=== PATIENT | female | born 1950 | race Caucasian/White ===

== ENCOUNTER 2023-07-05 15:10 | Outpatient (AMB) | payer MEDICARE, SELFPAY ==
[2023-07-05 15:18] VITALS: BP 158/90; PULSE 65; O2SAT 97; BMI 19.1
--- NOTE | 2023-07-05 15:18 | MHC.PC.OV ---
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 [employer] Required: No Allergies amoxicillin [From Augmentin] Allergy (Intermediate, Verified 07/05/23 16:07) Hives clavulanic acid [From Augmentin] Allergy (Intermediate, Verified 07/05/23 16:07) Hives doxycycline Allergy (Intermediate, Verified 07/05/23 16:07) Hives tramadol Allergy (Intermediate, Verified 07/05/23 16:07) Hives Glycerol oma of wood rosin Adverse Reaction (Mild, Uncoded 07/05/23 16:07) Itching hexyl cinnamal Adverse Reaction (Mild, Uncoded 07/05/23 16:07) Itching Medication List - Last Reconciled 07/05/23 by SHAVONNE Sow blood pressure monitor As directed hydrochlorothiazide 25 mg PO QAM losartan 100 mg PO DAILY valacyclovir 1,000 mg PO BID PRN Tobacco use date assessed: 07/05/23 Fall risk assessment: No Falls in past year Last assessed Fall Risk: 07/05/23 Dental Screening Dental Screen Date: 07/05/23 Did you have a dental visit in the last 12 months?: Yes Did you have a dental problem in the last 6 months where you did not have access to dental care?: No Was dental information given to patient?: Patient has dentist 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 Previous PCP on [facility], recently moved to this area. Medical history significant for hypertension, low back pain - history of laminectomy, history of shingles-reports when she feels stress shingles break out and then she takes valacyclovir as needed which was given to her by Dermatology in the past. Patient denies shortness of breath or chest pain. She does not check her blood pressures at home, reports compliance with blood pressure medications. [facility] Medical History (Updated 07/05/23 @ 17:01 by SHAVONNE Sow) Chronic low back pain Surgical History (Updated 07/05/23 @ 17:01 by SHAVONNE Sow) H/O laminectomy H/O lumpectomy History of surgery on lower extremity Family History Mother Breast cancer Father CHF (congestive heart failure) Social History Housing: Apartment Patient Tobacco Use Status: Never used Tobacco service: No Current occupational status: retired Cognitive needs: No Hearing needs: No Vision needs: Yes Questionnaire PHQ-9 Over the last 2 weeks, how often have you been bothered by any of the following problems? 1. Little interest or pleasure in doing things: not at all 2. Feeling down, depressed, or hopeless: not at all 3. Trouble falling or staying asleep, or sleeping too much: not at all 4. Feeling tired or having little energy: not at all 5. Poor appetite or overeating: not at all 6. Feeling bad about yourself - or that you are a failure or have let yourself or your family down: not at all 7. Trouble concentrating on things, such as reading the newspaper or watching television: not at all 8. Moving or speaking so slowly that other people could have noticed. Or the opposite - being so fidgety or restless that you have been moving around a lot more than usual: not at all 9. Thoughts that you would be better off or of hurting yourself in some way: not at all Total score: 0 Depression Screening Interpretation: Negative Depression Screening Done: Yes 59966 - PHQ-9 Billing: Yes Source: Developed by Drs. Ildefonso Vazquez, Diya Berg, Emeka Galvan and colleagues, with an educational ida from [employer]. Thrive Questionnaire Date Thrive assessed: 07/05/23 I am a: Patient What is your living situation today?: I have a steady place to live Within the past 12 months, did the food you bought not last and you didn't have the money to get more?: Never true Within the past 12 months, did you worry whether your food would run out before you got money to buy more?: Never true Do you have trouble paying for medicines?: No Do you have trouble getting transportation to medical appointments?: No Do you have trouble paying your heating and electricity bill?: No Do you have trouble taking care of your child, family member or friend?: No Do you have trouble with day-to-day activities such as bathing, preparing meals, shopping, managing finances, etc.?: No Are you currently unemployed and looking for a job?: No Are you interested in more education?: No Currently or been in a relationship where the following occur: no concerns reported AUDIT C Alcohol Use Questionnaire (AUDIT-C) 1. How often do you have a drink containing alcohol?: 2-3 times a week 2. How many drinks containing alcohol do you have on a typical day when you are drinking?: 1 or 2 3. How often do you have six or more drinks on one occasion?: Weekly Total Score: 6 Score Reviewed/Action Taken: Yes DUDLEY-7 AMB Questionnaire DUDLEY-7 Date DUDLEY - 7 assessed: 07/05/23 Feeling nervous, anxious, or on edge: 0 = Not at all Not being able to stop or control worryin = Not at all Worrying too much about different things: 0 = Not at all Trouble relaxin = Not at all Being so restless that it is hard to sit still: 0 = Not at all Becoming easily annoyed or irritable: 0 = Not at all Feeling afraid as if something awful might happen: 0 = Not at all Total DUDLEY-7 score (0-4 normal; 5-9 mild; 10-14 moderate; 15-21 severe): 0 Source: Developed by Drs. Ildefonso Vazquez, Diya Berg, Emeka Galvan and colleagues, with an educational ida from [employer]. DUDLEY-7 Assessment Billing DUDLEY-7 Assessment Tool: DUDLEY-7 Assessment 16614 Review of Systems Const Denies body aches, Denies chills, Denies fever(s) and Denies headache(s) Eyes Denies change in vision ENT Denies dizziness, Denies otalgia, Denies headache(s), Denies nasal discharge, Denies sinus pain and Denies sore throat Card Denies chest pain, Denies edema, Denies lightheadedness and Denies dyspnea Resp Denies cough, Denies dyspnea and Denies wheezing GI Denies abdominal pain, Denies constipation, Denies diarrhea, Denies nausea and Denies vomiting Denies dysuria Musc Reports back pain and Denies myalgias Skin/Breast Denies rash Neuro Denies dizziness and Denies headache(s) Aller/Immun Denies wheezing Physical exam (Primary Care) Vital Signs: Last Vital Signs Pulse 65 07/05/23 15:18 BP 172/84 H 07/05/23 16:22 Pulse Ox 97 07/05/23 15:18 Oxygen Delivery Method Room Air 07/05/23 15:18 BMI result Body Mass Index 19.1 Tobacco/Smoking Status: Tobacco use Status Tobacco use date assessed 07/05/23 07/05/23 15:20 Patient Tobacco Use Status Never used Tobacco 07/05/23 15:20 PHQ-9: PHQ-9 Score PHQ-9: Total score 0 07/05/23 16:06 Depression Screening Interpretation: Negative Thrive Assessment: Date of Thrive Assessment Date Thrive assessed 07/05/23 07/05/23 15:20 Currently or been in a relationship where the following occur: no concerns reported Const General: cooperative and no acute distress Orientation/consciousness: patient oriented x3 HENMT Head: Yes normocephalic and Yes atraumatic Ears: TM's normal bilaterally Face and sinus: Yes sinuses nontender Mouth: oropharynx normal and moist mucous membranes Throat: Yes posterior oropharynx normal Eyes General: appearance normal, both eyes and all related structures Pupils: Equal, round and reactive pupils present EOM: EOMs intact bilaterally Neck Neck: Yes normal visual inspection, Yes full ROM and Yes no lymphadenopathy Thyroid: Thyroid normal Resp Effort & Inspection: normal respiratory effort and able to speak in complete sentences Auscultation: clear to auscultation bilaterally, no crackles, no rales, no rhonchi and no wheezes Cardio Rate: regular rate Rhythm: regular rhythm Heart sounds: S1 normal heart sound present, S2 normal heart sound present and no murmurs GI Palpation (GI): Soft to palpation, not firm, nontender, no guarding, not rigid and no hepatosplenomegaly Auscultation: normal bowel sounds General: No CVA tenderness Back/Spine/Pelvis Back: No CVA tenderness Skin General skin exam: no rashes or lesions noted Neuro General: patient oriented x3 Cranial nerves: Yes Equal, round and reactive pupils present Gait exam (Neuro): Normal gait present Extrem General: Yes full ROM and No edema Assessment and Plan Assessment & Plan (1) Encounter to establish care: Code(s): Z76.89 - Persons encountering health services in other specified circumstances (2) Hypertension: Code(s): I10 - Essential (primary) hypertension Plan: Goal BP equal or less than 140/90 Blood pressure elevated in the office today, patient denies acute symptoms Continue losartan 100 mg daily Increase hydrochlorothiazide to 25 mg daily Reinforced low-sodium diet Signs and symptoms reviewed when to notify provider or go to the emergency department Follow-up with nurse in 2 weeks for BP recheck Monitor blood pressures at home (3) History of shingles: Code(s): Z86.19 - Personal history of other infectious and parasitic diseases Plan: Valacyclovir 1000 mg b.i.d. p.r.n. for shingles breakout (4) Chronic low back pain: Code(s): M54.50 - Low back pain, unspecified; G89.29 - Other chronic pain Plan: Patient reports she does not take anything for pain Declines referral to pain management Plan Follow-up in 2 months for PE and labs Orders: Orders Vitamin B12 and Folate Today I10 - Essential (primary) hypertension Lipid Panel Today I10 - Essential (primary) hypertension Complete Blood Count Auto Diff Today I10 - Essential (primary) hypertension Vitamin D 25-OH Total Today I10 - Essential (primary) hypertension TSH reflex Free T4 Today I10 - Essential (primary) hypertension Comprehensive [place]. Panel Fast Today I10 - Essential (primary) hypertension Medications: New hydrochlorothiazide 25 mg PO QAM 90 tabs 0RF I10 - Essential (primary) hypertension blood pressure monitor As directed 1 ea 0RF I10 - Essential (primary) hypertension Coding Level of Care Code New Pt Level 4 (23753) Diagnoses Encounter to establish care Z76.89 Hypertension I10 History of shingles Z86.19 Chronic low back pain M54.50; G89.29 Additional Codes DUDLEY-7 Assessment Billing - DUDLEY-7 Assessment Tool: DUDLEY-7 Assessment 53706 ([id number])
[2023-07-05 16:22] VITALS: BP 172/84
== END 2023-07-05 16:33 | disposition home or self-care (01) ==
PROVIDERS: PCP Nurse Practitioner Family; Visit Provider Nurse Practitioner Family
DX: Z76.89 Persons encountering health services in other specified circumstances (principal); I10 Essential (primary) hypertension; Z86.19 Personal history of other infectious and parasitic diseases; M54.50 Low back pain, unspecified; G89.29 Other chronic pain
CPT/HCPCS: 99204

== ENCOUNTER 2023-07-11 09:21 | Outpatient (REF) | payer MEDICARE, SELFPAY ==
[2023-07-11 09:48] LABS: MANUAL DIFF FLAG NO
[2023-07-11 10:17] LABS: Basophils Percent Auto 0.5 % (0-2); Eosinophils Absolute Auto 0.1 X10*3/uL (0.0-0.4); Eosinophils Percent Auto 2.9 % (0-4); Hematocrit 39.6 % (37.0-47.0); Hemoglobin 13.6 g/dl (12.0-16.0); Imm Gran Abs Auto 0.02 X10*3/uL (0.00-0.03); Imm Gran Pct Auto 0.5 % (0.0-0.4); Lymphocytes Absolute Auto 1.1 X10*3/uL (1.2-4.9); Lymphocytes Percent Auto 27.9 % (20-40); Mean Corpuscular HGB Conc 34.3 g/dl (31.0-35.0); Mean Corpuscular Hemoglobin 30.9 pg (27.0-33.0); Mean Platelet Volume 8.9 fL (9.4-12.3); Monocytes Absolute Auto 0.5 X10*3/uL (0.1-1.2); Monocytes Percent Auto 12.8 % (2-11); Neutrophils Absolute Auto 2.1 x10*3/uL (2.0-8.3); Neutrophils Percent Auto 55.4 % (45-73); Platelet Count 226 X10*3/uL (160-400); Red Cell Distribution Width 12.7 % (11.0-16.0); White Blood Count 3.8 X10*3/uL (4.8-10.8)
[2023-07-11 10:53] LABS: Alanine Aminotransferase 14 U/L (0-31); Albumin Level 4.5 g/dL (3.5-5.0); Alkaline Phosphatase 71 U/L (39-117); Anion Gap 13 (12-20); Aspartate Amino Transferase 22 U/L (5-31); Blood Urea Nitrogen 6 mg/dL (9-16); Calcium 9.8 mg/dL (8.4-10.2); Carbon Dioxide 27 mmol/L (22-29); Chloride 90 mmol/L (96-108); Cholesterol 241 mg/dL (<200); Estimated Glomerular Filt Rate > 60; Glucose Fasting 103 mg/dL (60-99); HDL Cholesterol 106 mg/dL (>40); LDL Cholesterol Calculated 119 mg/dL (<100); Sodium 126 mmol/L (135-145); Total Protein 7.5 g/dL (6.5-8.0); Triglycerides 82 mg/dL (<150)
[2023-07-11 11:12] LABS: TSH reflex Free T4 0.91 uIU/mL (0.32-4.0); Vitamin D 25-OH Total 17.8 ng/mL (>30)
[2023-07-11 11:17] LABS: Folate 5.5 ng/mL (> or = 4.0); Vitamin B12 270 pg/mL (200-900)
== END 2023-07-11 09:22 | disposition home or self-care (01) ==
LOC: HO.LAB 09:21
PROVIDERS: PCP Nurse Practitioner Family; Visit Provider Nurse Practitioner Family
DX: I10 Essential (primary) hypertension (principal); E87.1 Hypo-osmolality and hyponatremia; R73.01 Impaired fasting glucose; E55.9 Vitamin D deficiency, unspecified
CPT/HCPCS: 36415; 80053; 80061; 82306; 82607; 82746; 84443; 85025

== ENCOUNTER 2023-07-27 11:37 | Outpatient (REF) | payer MEDICARE, SELFPAY ==
[2023-07-27 12:34] LABS: Anion Gap 12 (12-20); Blood Urea Nitrogen 9 mg/dL (9-16); Calcium 9.3 mg/dL (8.4-10.2); Carbon Dioxide 26 mmol/L (22-29); Chloride 91 mmol/L (96-108); Estimated Glomerular Filt Rate > 60; Glucose Random 98 mg/dL (60-115); Potassium 3.9 mmol/L (3.3-5.1); Sodium 125 mmol/L (135-145)
[2023-07-27 12:35] LABS: Estimated Average Glucose 91 mg/dL; Hemoglobin A1c % 4.8 % (<6.0)
== END 2023-07-27 11:38 | disposition home or self-care (01) ==
LOC: HO.LAB 11:37
PROVIDERS: PCP Nurse Practitioner Family; Visit Provider Nurse Practitioner Family
DX: E87.1 Hypo-osmolality and hyponatremia (principal); R73.01 Impaired fasting glucose
CPT/HCPCS: 36415; 80048; 83036

== ENCOUNTER 2023-09-11 11:51 | Outpatient (REF) | payer MEDICARE, SELFPAY ==
--- NOTE | ~2023-09-11 | MM_ITS ---
EXAMINATION: MM SCREENING DIGITAL BREAST TOMOSYNTHESIS, BILATERAL CLINICAL INFORMATION: Screening. Asymptomatic. The patient reports a history of prior right breast surgery. She does not report a history of breast cancer. COMPARISON: Mammography: There are no prior mammograms for comparison. TECHNIQUE: Digital breast tomosynthesis is performed in both the craniocaudal and mediolateral oblique views along with computer-aided detection (CAD). Synthesized 2D images are generated from the tomosynthesis. FINDINGS: There are scattered areas of fibroglandular density (ACR BI-RADS breast composition Category b). There are no significant masses, abnormal calcifications, or other abnormalities. There are surgical clips in the superior aspect of the left breast. MM/MM tomosynthesis screening BI IMPRESSION: No mammographic evidence of malignancy. ASSESSMENT: BI-RADS BI-RADS 2 - Benign Findings RECOMMENDATION: Routine annual mammography screening. 1 year F/U This examination should not preclude the clinical evaluation of a suspicious palpable abnormality. This patient's information was entered into a reminder system with a target due date for their next mammogram.
== END 2023-09-11 11:52 | disposition home or self-care (01) ==
LOC: HO.MAMMO 11:51
PROVIDERS: PCP Nurse Practitioner Family; Visit Provider Nurse Practitioner Family
DX: Z12.31 Encounter for screening mammogram for malignant neoplasm of breast (principal)
CPT/HCPCS: 77063; 77067

== ENCOUNTER → 2023-09-11 12:30 | Outpatient (BNV) | payer MEDICARE, SELFPAY | PROVIDERS: PCP Nurse Practitioner Family; Visit Provider Radiology Diagnostic Radiology | DX: Z12.31 Encounter for screening mammogram for malignant neoplasm of breast (principal) | CPT/HCPCS: 77063; 77067 ==

== ENCOUNTER 2023-09-15 20:51 | Inpatient (IN) | payer MEDICARE, SELFPAY ==
--- NOTE | 2023-09-15 | ECG_ITS ---
Test Reason : FALL Blood Pressure : / mmHG Vent. Rate : 089 BPM Atrial Rate : 089 BPM P-R Int : 136 ms QRS Dur : 090 ms QT Int : 384 ms P-R-T Axes : 055 010 090 degrees QTc Int : 467 ms Normal sinus rhythm Nonspecific ST abnormality Borderline ECG No previous ECGs available Referred By: Generic ED Physician Electronically Signed By:CLINT CRAFT
--- NOTE | ~2023-09-15 | XR_ITS ---
EXAMINATION: XR HIP, LEFT CLINICAL INFORMATION: Fall COMPARISON: None available. TECHNIQUE: Frontal view the pelvis with coned frontal and attempted frog-leg lateral view of the left hip. FINDINGS: There is a trabecular irregularity suggesting a subtle impacted subcapital left femoral neck fracture with mild cortical step-off along the lateral aspect. Femoral head itself is well-seated within the acetabulum. No other acute bony abnormality within the pelvis. Lumbar spine hardware partially visualized. XR/XR hip LT w PEL1V IMPRESSION: Subtle impacted subcapital left femoral neck fracture with mild cortical step-off along the lateral aspect.
[2023-09-15 21:13] VITALS: BP 145/62; PULSE 95; O2SAT 99
[2023-09-15 21:16] VITALS: BMI 20.1
[2023-09-15 21:19] VITALS: BP 137/76; PULSE 88; RESP 17; TEMP 36.8; O2SAT 97
--- NOTE | 2023-09-15 22:18 | ED_ITS ---
HPI - General Adult General Chief complaint: Fall Stated complaint: fall Time Seen by Provider: 09/15/23 21:59 Source: patient, family, EMS and RN notes reviewed Mode of arrival: EMS Limitations: no limitations History of Present Illness HPI narrative: 73-year-old female with past medical history of hyponatremia, chronic low back pain, status post laminectomy, hypertension arived to ER via ambulance. Patient fell this afternoon in her living room. Patient reports that she was trying to find TV remote was walking on her freshly polished floor, her legs gave in and she fell. Patient denies tripping over carpet, patient denies slipping. Patient denies any presyncope, dizziness, syncope. Patient denies any LOC. Not on any blood thinners. Patient denies any cardiac or respiratory symptoms before and after the incident. History of laminectomy in 2019. Patient denies any pelvic or back pain at this time. Patient reports that she has no pain at this time unless she moves her left hip or left. Patient denies hitting head. Patient denies any nausea or vomiting. Denies any chest pain or chest pressure. Denies any shortness of breath with or without exertion. Patient denies any abdominal pain or discomfort. Patient reports that she had trouble with anesthesia in the past for laminectomy surgery. She has hard time waking up and felt groggy for long time after the surgery. Onset (ago): hour(s) Related Data Home Medications Medication Instructions Recorded Confirmed valacyclovir 1 gram tablet 1,000 mg PO BID PRN shingles 07/05/23 09/16/23 hydrochlorothiazide 25 mg tablet 12.5 mg PO DAILY 09/16/23 09/16/23 losartan 100 mg tablet 100 mg PO DAILY 09/16/23 09/16/23 Previous Rx's Medication Instructions Recorded blood pressure monitor #1 ea 07/05/23 Allergies Allergy/AdvReac Type Severity Reaction Status Date / Time amoxicillin [From Augmentin] Allergy Intermediate Hives Verified 07/05/23 16:07 clavulanic acid Allergy Intermediate Hives Verified 07/05/23 16:07 [From Augmentin] doxycycline Allergy Intermediate Hives Verified 07/05/23 16:07 tramadol Allergy Intermediate Hives Verified 07/05/23 16:07 Glycerol oma of wood rosin AdvReac Mild Itching Uncoded 07/05/23 16:07 hexyl cinnamal AdvReac Mild Itching Uncoded 07/05/23 16:07 PMFSH Past Medical History Medical History History of breast cancer Essential hypertension Chronic low back pain Surgical History H/O laminectomy H/O lumpectomy History of surgery on lower extremity Family History Family History Mother Breast cancer Father CHF (congestive heart failure) Social History Social History Household Members: Other Housing: Apartment Do you presently have visiting nurse or other home services: No Patient Tobacco Use Status: Never used Tobacco service: No Current occupational status: retired Cognitive needs: No Hearing needs: No Vision needs: Yes Physical Exam ED Vital Signs: Vital Signs - 24 hr 09/15/23 21:19 09/15/23 22:34 Temperature 98.2 F Pulse Rate 88 99 Respiratory Rate 17 15 Blood Pressure 137/76 Pulse Oximetry 97 99 Oxygen Delivery Method Room Air Room Air BMI result Body Mass Index 20.1 Const General: no acute distress and well developed Nutritional Appearance: well nourished Orientation/consciousness: patient oriented x3 HENMT Head: Yes normal to inspection, Yes normocephalic and Yes atraumatic Face and sinus: Yes normal facial exam Mouth: Normal oral and palatal mucosa present Throat: Yes posterior oropharynx normal, Yes tonsils normal and Yes uvula midline Eyes General: appearance normal, both eyes and all related structures Neck Neck: Yes normal visual inspection, Yes full ROM and Yes trachea midline Thyroid: Thyroid normal Resp Effort & Inspection: normal respiratory effort, able to speak in complete sentences, no tracheal deviation and symmetric chest movement Auscultation: clear to auscultation bilaterally Cardio Rate: regular rate GI Inspection: Yes normal to inspection and No distended Palpation (GI): Soft to palpation, not firm, nontender and No hepatosplenomegaly present Auscultation: normal bowel sounds General: Yes no CVA tenderness Back/Spine/Pelvis Back: no CVA tenderness Pelvis: Other pelvic findings (Left hip pain) Coccyx: Other pelvic findings (Left hip pain) Skin General skin exam: elasticity normal, turgor normal and dry skin Neuro General: patient oriented x3 Extrem Right upper extremity: normal to inspection, full ROM and normal capillary refill; no cyanosis and no edema Left upper extremity: normal to inspection, full ROM and normal capillary refill; no cyanosis and no edema Right lower extremity: normal to inspection, full ROM and normal capillary refill; no cyanosis and no edema Left lower extremity: normal to inspection and normal capillary refill; abnormal ROM, no cyanosis and no edema Psych Appearance: grossly normal Mental Status: mental status grossly normal Course Course Course Narrative: 73-year-old female with past medical history of hyponatremia, chronic low back pain, status post laminectomy, hypertension arise to ER via ambulance. Patient fell in her living room. Patient reports that she was trying to find TV remote was walking and she fell. Patient denies any presyncope, dizziness, syncope. Patient denies any LOC. Not on any blood thinners. Patient reports that she has no pain at this time unless she moves her left hip or left. Patient denies hitting head. Patient denies any nausea or vomiting. Denies any chest pain or chest pressure. Denies any shortness of breath with or without exertion. Patient denies any abdominal pain or discomfort. X-ray done and shows subcapital left femoral neck fracture. History of laminectomy in 2019. Patient denies any pelvic or back pain at this time. Patient reports that she has no pain at this time unless she moves her left hip or left. Patient denies hitting head. Patient denies any nausea or vomiting. Denies any chest pain or chest pressure. Denies any shortness of breath with or without exertion. Patient denies any abdominal pain or discomfort. Patient reports that she had trouble with anesthesia in the past for laminectomy surgery. She has hard time waking up and felt groggy for long time after the surgery. Reevaluation(s) Reevaluation #1: Call placed to ortho. request for admission to hospitalist services recommendation was to admit patient to hospitalist for medical management. Currently patient is not in any pain. With rather not receive narcotics. Bed request for admission with hospitalist services. Report to hospitalist send, waiting admission Medications Administered Generic Name Dose Route Start Last Admin Trade Name Freq PRN Reason Stop Dose Admin Losartan Potassium 100 mg 09/16/23 09:00 09/16/23 09:02 Losartan Potassium 50 Mg Tablet PO 100 mg DAILY MARTHA Administration Protocol Sodium Chloride 3 ml 09/16/23 00:00 09/16/23 14:33 0.9 % Sodium Chloride Flush 3 Ml Syringe IVFLUSH Not Given QSHIFT MARTHA Vitamin D 50 mcg 09/16/23 09:00 09/16/23 09:02 Cholecalciferol (Vitamin D3) 25 Mcg Tablet PO Not Given DAILY MARTHA Discontinued Medications Generic Name Dose Route Start Last Admin Trade Name Alphonso PRN Reason Stop Dose Admin Enoxaparin Sodium 40 mg 09/15/23 23:45 09/16/23 00:51 Enoxaparin Sodium 40 Mg/0.4 Ml Syringe SUBCUT 40 mg BEDTIME MARTHA Administration Dextrose/Sodium Chloride 1,000 mls @ 100 mls/hr 09/15/23 23:45 09/16/23 14:42 D5ns IVCONT Infused .Q10H MARTHA Infusion Clindamycin Phosphate 900 mg in 50 mls @ 50 mls/hr 09/16/23 09:16 09/16/23 12:05 Cleocin IV 09/16/23 10:15 Not Given PREOP ONE Medical Decision Making Medical Decision Making MDM Narrative: 73-year-old female with past medical history of hyponatremia, chronic low back pain, status post laminectomy, hypertension arise to ER via ambulance. Patient fell in her living room. Patient reports that she was trying to find TV remote was walking and she fell. Patient denies any presyncope, dizziness, syncope. Patient denies any LOC. Not on any blood thinners. Patient reports that she has no pain at this time unless she moves her left hip or left. Patient denies hitting head. Patient denies any nausea or vomiting. Denies any chest pain or chest pressure. Denies any shortness of breath with or without exertion. Patient denies any abdominal pain or discomfort. X-ray done and shows subcapital left femoral neck fracture. Call placed to ortho, up patient will be admitted to hospitalist services for medical management, history of hypertension on 2 antihypertensives. Message sent to the hospitalist for admission. Bed request done. Differential Diagnosis Differential Diagnoses: The differential diagnosis associated with the presentation includes Hip fracture, femur fracture Admission/Observation Consideration of admission/observation: Escalation of care including admission/observation considered Case presented to orthol and hospitalist services for admission Consult Healthcare Provider Management of the patient was discussed with: Hospitalist and [employer] Adjuster (Ortho) Lab Data MDM Lab Attestation statement: I reviewed the patient's lab results. 09/16/23 06:12 09/16/23 06:12 Labs: Lab Results 09/15/23 Range/Units 23:44 WBC 11.5 H (4.8-10.8) X10*3/uL RBC 4.19 L (4.20-5.50) X10*6/uL Hgb 13.5 (12.0-16.0) g/dl Hct 37.3 (37.0-47.0) % MCV 89.0 (80.0-98.0) fL MCH 32.2 (27.0-33.0) pg MCHC 36.2 H (31.0-35.0) g/dl RDW 12.0 (11.0-16.0) % Plt Count 204 (160-400) X10*3/uL MPV 8.8 L (9.4-12.3) fL Immature Gran % (Auto) 0.6 H (0.0-0.4) % Neut % (Auto) 83.8 H (45-73) % Lymph % (Auto) 9.5 L (20-40) % [place] % (Auto) 5.6 (2-11) % Eos % (Auto) 0.3 (0-4) % Baso % (Auto) 0.2 (0-2) % Lymph # (Auto) 1.1 L (1.2-4.9) X10*3/uL [place] # (Auto) 0.6 (0.1-1.2) X10*3/uL Eos # (Auto) 0.0 (0.0-0.4) X10*3/uL Baso # (Auto) 0.0 (0.0-0.2) X10*3/uL Abs Immat Gran (auto) 0.07 H (0.00-0.03) X10*3/uL Absolute Neuts (auto) 9.6 H (2.0-8.3) x10*3/uL Absolute Nucleated RBC 0.000 (0.0-0.012) X10*3/uL Nucleated RBC % (auto) 0.0 (0.0-0.2) /100WBC PT 11.0 L (11.1-13.3) SEC INR 0.9 (0.9-1.1) Sodium 125 L (135-145) mmol/L Potassium 3.9 (3.3-5.1) mmol/L Chloride 90 L (96-108) mmol/L Carbon Dioxide 22 (22-29) mmol/L Anion Gap 17 (12-20) BUN 8 L (9-16) mg/dL Creatinine 0.61 (0.5-1.4) mg/dL Estim Creat Clear Calc 66.7 Estimated GFR > 60 Random Glucose 91 (60-115) mg/dL Calcium 8.8 (8.4-10.2) mg/dL Total Bilirubin 0.5 (0.0-1.0) mg/dL AST 30 (5-31) U/L ALT 15 (0-31) U/L Alkaline Phosphatase 63 (39-117) U/L Total Protein 7.4 (6.5-8.0) g/dL Albumin 4.1 (3.5-5.0) g/dL Hold Yellow Top See Note Ethyl Alcohol 118 mg/dL Blood Type B Positive Antibody Screen NEGATIVE Independent Interpretation I performed an independent interpretation of an: EKG Interpretation: Interpretation: NSR at 89 bpm normal axis normal RI interval. No acute ischemic changes Discharge Plan Discharge Clinical Impression: Femoral neck fracture Qualifiers: Encounter type: initial encounter Fracture type: closed Laterality: left Q ualified Code(s): S72.002A - Fracture of unspecified part of neck of left femur, initial encounter for closed fracture Patient Disposition: Admitted As Inpatient Interventions: Admission Worksheet (ED) Last Done: 09/16/23 12:13 Discharge Date/Time: 09/16/23 09:10
[2023-09-15 22:34] VITALS: PULSE 99; RESP 15; O2SAT 99
--- NOTE | 2023-09-15 23:26 | MHC.EDTECH ---
Printer are down, unable to scan and save blood band Number: [id number]
--- NOTE | 2023-09-15 23:59 | P.HPHOSP_ITS ---
History of Present Illness Date of Service: 09/15/23 Attending physician on admission: Channing Madera Chief Complaint: Left hip pain 73-year-old white female with past medical history of hyponatremia, chronic low back pain, status post laminectomy, hypertension presents to the ER via EMS after an accidental mechanical fall at home complaining of severe pain in the left hip and inability to bear weight. She was walking in her living room where she has polished wooden floors to retrieve the TV remote and turn off the TV when her legs gave way and she fell landing n her left hip. She denies any preceding dizziness, lightheadedness or chest pain. She did not strike her head nor did she loose consciousness. A plain x-ray of the left hip done in the ER showed a subtle left femoral neck fracture . This was discussed with Orthopedic surgical team who recommended medical admission with orthopedic surgery consult. She otherwise denies any cardiac or pulmonary issues and EKG done revealed NSR at 89 bpm with no acute ischemic changes. She otherwise has excellent pre- morbid performance status and is able to walk freely with no limitations. Review of Systems 2 Review of Systems: Yes all other systems are reviewed and are negative [facility] Medical History (Updated 09/16/23 @ 04:03 by Channing Madera MD) History of breast cancer Essential hypertension Chronic low back pain Functional capacity: independent ambulation Patient : No Family History Mother Breast cancer Father CHF (congestive heart failure) Surgical History (Updated 07/05/23 @ 17:01 by SHAVONNE Sow) H/O laminectomy H/O lumpectomy History of surgery on lower extremity Social History Housing: Apartment Patient Tobacco Use Status: Never used Tobacco service: No Current occupational status: retired Cognitive needs: No Hearing needs: No Vision needs: Yes Meds Allergies Allergy/AdvReac Type Severity Reaction Status Date / Time amoxicillin [From Augmentin] Allergy Intermediate Hives Verified 07/05/23 16:07 clavulanic acid Allergy Intermediate Hives Verified 07/05/23 16:07 [From Augmentin] doxycycline Allergy Intermediate Hives Verified 07/05/23 16:07 tramadol Allergy Intermediate Hives Verified 07/05/23 16:07 Glycerol oma of wood rosin AdvReac Mild Itching Uncoded 07/05/23 16:07 hexyl cinnamal AdvReac Mild Itching Uncoded 07/05/23 16:07 Home Medications Medication Instructions Recorded Confirmed Last Taken Type valacyclovir 1 gram tablet 1,000 mg PO BID PRN 07/05/23 07/05/23 Unknown History cholecalciferol (vitamin D3) 50 50 mcg PO DAILY 09/16/23 09/16/23 Unknown History mcg (2,000 unit) tablet hydrochlorothiazide 25 mg tablet 25 mg PO QAM 09/16/23 09/16/23 Unknown History losartan 100 mg tablet 100 mg PO DAILY 09/16/23 09/16/23 Unknown History Physical Exam 2 Vital Signs and Narrative: Vital Signs: Last Vital Signs Temp 98.2 F 09/15/23 21:19 Pulse 99 09/15/23 22:34 Resp 15 09/15/23 22:34 BP 137/76 09/15/23 21:19 Pulse Ox 99 09/15/23 22:34 O2 Del Method Room Air 09/15/23 22:34 BMI result Body Mass Index 20.1 General: Well nourished. Awake, alert and oriented x 4. No apparent distress Eyes: No pallor or jaundice. PERRLA, EOMI HENT: Moist oral mucus membranes. No oropharyngeal lesions. Neck: Supple. No cervical adenopathy. No JVD Cardiovascular: Regular rate and rhythm. Normal heart sounds. No murmurs, rubs or gallops. No JVD. No peripheral edema. Respiratory: Normal respiratory effort with no accessory muscle use. CTAB. Gastrointestinal: Abdomen is soft, non-tender, non-distended. NABS. No hepatosplenomegaly Extremities: LLLE with limited ROM around the hip joint. No edema. No calf tenderness. Good peripheral pulses Skin: Warm/Dry. No rashes. No mottling. Capillary refill is < 2 seconds Neurological: AAOx4. Intact speech & cognition. CN II - XII grossly intact but not individually tested. No motor or sensory deficits Hematologic: No bleeding. No ecchymosis. No swollen or tender lymph nodes. Psychiatric: Cooperative. Appropriate mood and affect. Results Labs 09/15/23 23:44 09/15/23 23:44 ECG ECG interpretation date: 09/16/23 ECG interpretation time: 03:41 Prior ECG tracings: available for review Interpretation: NSR at 89 bpm with normal axis and normal MA interval. No acute ischemic changes Imaging Radiologist's Impressions: Impressions Hip/Pelvis X-Ray 09/15/23 21:59 Subtle impacted subcapital left femoral neck fracture with mild cortical step- off along the lateral aspect. Assessment and Plan (1) Femoral neck fracture: Qualifiers: Encounter type: initial encounter Fracture type: closed Laterality: l eft Qualified Code(s): S72.002A - Fracture of unspecified part of neck of left femur, initial encounter for closed fracture Status: Acute (2) Hyponatremia: Status: Acute (3) Hypertension: Qualifiers: Hypertension type: primary hypertension Qualified Code(s): I10 - Essential (primary) hypertension Status: Acute Plan 73-year-old white female with past medical history of hyponatremia, chronic low back pain, status post laminectomy, hypertension here with: 1. Left femoral neck fracture - admit for surgical management by Orthopedic surgery - keep NPO and bed rest for now - PRN Tylenol for pain 2. Hyponatremia - euvolemic and appears to be a chronic problem - etiology is unclear but could be thiazide associated - will stop HCTZ - she will need close esther-operative follow up given increased risk of esther- operative complications - consult Renal team to assist 3. Hypertension - BP well controlled - resume Losartan - stop HCTZ given hyponatremia 4. Pre-operative clearance - she has excellent pre-morbid functional capacity (can take care of self, walk indoors, climb a flight of stairs etc) - she has no cardiac or pulmonary problems - EKG with no arrhythmias or ischemic changes - MATA perioperative risk of CALI is 0.2% - ARISCAT score for postoperative pulmonary complications is 3 ponts (1.6% risk of in-hospital poet-op pulmonary complications) - ok to proceed with surgery without further pre-op cardiac or pulmonary testing - will need close post-operative follow up more so in-view of hyponatremia DVT: SC heparin CODE STATUS: Full code Admission for at least 2 midnights for management of left femoral neck fracture Total time managing care of this patient today: 75 minutes. Quality Stroke Does the patient have a stroke diagnosis?: No VTE Prior VTE?: No VTE Risk Level:: Surgical - high VTE Device Contraindication: N/A - Device Ordered VTE Drug Contraindication: N/A - Med Ordered
[2023-09-16] VITALS (9 sets, daily range): BP systolic 120–165; BP diastolic 56–85; PULSE 67–92; RESP 10–18; TEMP 36.1–37.1; O2SAT 96–100; BMI 21.2
[2023-09-16] LABS: MANUAL DIFF FLAG NO
[2023-09-16 00:06] LABS: Basophils Percent Auto 0.2 % (0-2); Eosinophils Percent Auto 0.3 % (0-4); Hematocrit 37.3 % (37.0-47.0); Hemoglobin 13.5 g/dl (12.0-16.0); Imm Gran Abs Auto 0.07 X10*3/uL (0.00-0.03); Imm Gran Pct Auto 0.6 % (0.0-0.4); Lymphocytes Absolute Auto 1.1 X10*3/uL (1.2-4.9); Lymphocytes Percent Auto 9.5 % (20-40); Mean Corpuscular HGB Conc 36.2 g/dl (31.0-35.0); Mean Corpuscular Hemoglobin 32.2 pg (27.0-33.0); Mean Platelet Volume 8.8 fL (9.4-12.3); Monocytes Absolute Auto 0.6 X10*3/uL (0.1-1.2); Monocytes Percent Auto 5.6 % (2-11); Neutrophils Absolute Auto 9.6 x10*3/uL (2.0-8.3); Neutrophils Percent Auto 83.8 % (45-73); Platelet Count 204 X10*3/uL (160-400); Red Blood Count 4.19 X10*6/uL (4.20-5.50); White Blood Count 11.5 X10*3/uL (4.8-10.8)
[2023-09-16 00:14] LABS: INTERNATIONAL NORM RATIO 0.9 (0.9-1.1)
[2023-09-16 00:25] LABS: Alanine Aminotransferase 15 U/L (0-31); Albumin Level 4.1 g/dL (3.5-5.0); Alkaline Phosphatase 63 U/L (39-117); Anion Gap 17 (12-20); Aspartate Amino Transferase 30 U/L (5-31); Bilirubin Total 0.5 mg/dL (0.0-1.0); Blood Urea Nitrogen 8 mg/dL (9-16); Calcium 8.8 mg/dL (8.4-10.2); Carbon Dioxide 22 mmol/L (22-29); Chloride 90 mmol/L (96-108); Creatinine Clr Calc Pharmacy 66.7; Estimated Glomerular Filt Rate > 60; Ethanol 118 mg/dL; Glucose Random 91 mg/dL (60-115); Potassium 3.9 mmol/L (3.3-5.1); Sodium 125 mmol/L (135-145); Total Protein 7.4 g/dL (6.5-8.0)
[2023-09-16] MEDS: Dextrose 5 % and 0.9 % NaCl 1,000 ML 100 ML IVCONT ×2 (00:49→12:38)
[2023-09-16] MEDS: Enoxaparin Sodium 40 MG/0.4 ML SYRINGE SUBCUT (00:51)
[2023-09-16] MEDS: 0.9 % Sodium Chloride Flush 3 ML SYRINGE IVFLUSH ×3 (01:03→20:38)
[2023-09-16 07:03] LABS: Hematocrit 37.2 % (37.0-47.0); Hemoglobin 13.5 g/dl (12.0-16.0); Mean Corpuscular HGB Conc 36.3 g/dl (31.0-35.0); Mean Corpuscular Hemoglobin 32.2 pg (27.0-33.0); Mean Corpuscular Volume 88.8 fL (80.0-98.0); Mean Platelet Volume 8.9 fL (9.4-12.3); Platelet Count 178 X10*3/uL (160-400); Red Blood Count 4.19 X10*6/uL (4.20-5.50); Red Cell Distribution Width 11.9 % (11.0-16.0); White Blood Count 7.8 X10*3/uL (4.8-10.8)
[2023-09-16 07:06] LABS: Osmolality, Serum 258 mosm/kg (281-305)
--- NOTE | 2023-09-16 07:10 | PM.EVENT ---
Event Note Date of Service: 09/16/23 Event Note: 73 yo female fell at home resulting in a left hip fem neck fx NPO T&S performed med clearance obtained will require renal consult post op - medicine following this plan is for CRPP left hip to be done today Time Spent With Patient Time: Total time managing care of this patient today ____ minutes.
[2023-09-16 07:13] LABS: Anion Gap 13 (12-20); Blood Urea Nitrogen 7 mg/dL (9-16); Calcium 8.7 mg/dL (8.4-10.2); Carbon Dioxide 22 mmol/L (22-29); Chloride 95 mmol/L (96-108); Creatinine Clr Calc Pharmacy 72.8; Estimated Glomerular Filt Rate > 60; Glucose Random 114 mg/dL (60-115); Potassium 3.8 mmol/L (3.3-5.1); Sodium 126 mmol/L (135-145)
[2023-09-16 07:29] LABS: TSH reflex Free T4 0.88 uIU/mL (0.32-4.0)
--- NOTE | 2023-09-16 08:54 | P.CONAN_ITS ---
[facility], [facility] Active Problems Active Problems: All Active Problems (Updated 09/16/23 @ 04:03 by Channing Madera MD) Femoral neck fracture (Acute) Skin tag (Acute) Hyponatremia (Acute) Elevated fasting glucose (Acute) Low vitamin D level (Acute Unknown) Chronic low back pain (Acute) Encounter to establish care (Acute) Hypertension (Acute) History of shingles (Acute) Past Medical History Medical History History of breast cancer Essential hypertension Chronic low back pain Functional capacity: independent ambulation Patient : No Family History Family History Mother Breast cancer Father CHF (congestive heart failure) Family history of problems with anesthesia: No Surgical History Surgical History H/O laminectomy H/O lumpectomy History of surgery on lower extremity History of Problems with Anesthesia: No Social History Social History Housing: Apartment Patient Tobacco Use Status: Never used Tobacco Smoked in Last 30 Days: No Advance Directives: No Advance Directives on File: No Nutrition Risks: No Nutritional Risk Patient : No service: No Current occupational status: retired Cognitive needs: No Hearing needs: No Vision needs: Yes Meds Allergies Allergy/AdvReac Type Severity Reaction Status Date / Time amoxicillin [From Augmentin] Allergy Intermediate Hives Verified 07/05/23 16:07 clavulanic acid Allergy Intermediate Hives Verified 07/05/23 16:07 [From Augmentin] doxycycline Allergy Intermediate Hives Verified 07/05/23 16:07 tramadol Allergy Intermediate Hives Verified 07/05/23 16:07 Glycerol oma of wood rosin AdvReac Mild Itching Uncoded 07/05/23 16:07 hexyl cinnamal AdvReac Mild Itching Uncoded 07/05/23 16:07 Active Medications: Current Medications Acetaminophen (Acetaminophen 325 Mg Tablet) 650 mg PO Q6H PRN PRN Reason: Pain, Mild (Pain Scale 1-3) Al Hydroxide/Mg Hydroxide (Magnesium Hydrox/Alum Hydrox 30 Ml Oral.Susp) 30 ml PO Q4H PRN PRN Reason: Heartburn/Nausea Fentanyl (Fentanyl Citrate/Pf 100 Mcg/2 Ml Vial) 25 mcg IVPUSH Q5M PRN; Protocol PRN Reason: Pain, Moderate(Pain Scale 4-6) Dextrose/Sodium Chloride (D5ns) 1,000 mls @ 100 mls/hr IVCONT .Q10H [facility] Last Admin: 09/16/23 00:49 Dose: 100 mls/hr Losartan Potassium (Losartan Potassium 50 Mg Tablet) 100 mg PO DAILY [facility]; Protocol Melatonin (Melatonin 3 Mg Tablet) 6 mg PO BEDTIME PRN PRN Reason: Insomnia Ondansetron HCl (Ondansetron Hcl 4 Mg/2 Ml Vial) 4 mg IVPUSH Q8H PRN PRN Reason: Nausea and Vomiting Ondansetron HCl (Ondansetron Hcl 4 Mg/2 Ml Vial) 4 mg IVPUSH ONCE PRN PRN Reason: Nausea and Vomiting Sodium Chloride (0.9 % Sodium Chloride Flush 3 Ml Syringe) 3 ml IVFLUSH QSHIFT [facility] Last Admin: 09/16/23 08:40 Dose: Not Given Vitamin D (Cholecalciferol (Vitamin D3) 25 Mcg Tablet) 50 mcg PO DAILY [facility] Home Medications Medication Instructions Recorded Confirmed Last Taken Type valacyclovir 1 gram tablet 1,000 mg PO BID PRN 07/05/23 07/05/23 Unknown History cholecalciferol (vitamin D3) 50 50 mcg PO DAILY 09/16/23 09/16/23 Unknown History mcg (2,000 unit) tablet hydrochlorothiazide 25 mg tablet 25 mg PO QAM 09/16/23 09/16/23 Unknown History losartan 100 mg tablet 100 mg PO DAILY 09/16/23 09/16/23 Unknown History Exam Height,Weight and Vital Signs: Height 5 ft 4 in Weight 53.1 kg Last Vital Signs Temp 98.2 F 09/15/23 21:19 Pulse 92 09/16/23 00:52 Resp 14 09/16/23 00:52 BP 137/73 09/16/23 00:52 Pulse Ox 98 09/16/23 00:52 O2 Del Method Room Air 09/16/23 00:52 Pertinent Lab Results Pertinent Lab Results: Laboratory Tests 09/15/23 09/16/23 23:44 06:12 WBC 11.5 H 7.8 RBC 4.19 L 4.19 L Hgb 13.5 13.5 Hct 37.3 37.2 MCV 89.0 88.8 MCH 32.2 32.2 MCHC 36.2 H 36.3 H RDW 12.0 11.9 Plt Count 204 178 MPV 8.8 L 8.9 L Immature Gran % (Auto) 0.6 H Neut % (Auto) 83.8 H Lymph % (Auto) 9.5 L [place] % (Auto) 5.6 Eos % (Auto) 0.3 Baso % (Auto) 0.2 Lymph # (Auto) 1.1 L [place] # (Auto) 0.6 Eos # (Auto) 0.0 Baso # (Auto) 0.0 Abs Immat Gran (auto) 0.07 H Absolute Neuts (auto) 9.6 H Absolute Nucleated RBC 0.000 0.000 Nucleated RBC % (auto) 0.0 0.0 PT 11.0 L INR 0.9 Sodium 125 L 126 L Potassium 3.9 3.8 Chloride 90 L 95 L Carbon Dioxide 22 22 Anion Gap 17 13 BUN 8 L 7 L Creatinine 0.61 0.56 Estim Creat Clear Calc 66.7 72.8 Estimated GFR > 60 > 60 Random Glucose 91 114 Osmolality 258 L Calcium 8.8 8.7 Total Bilirubin 0.5 AST 30 ALT 15 Alkaline Phosphatase 63 Total Protein 7.4 Albumin 4.1 TSH 0.88 Hold Yellow Top See Note Ethyl Alcohol 118 Blood Type B Positive Antibody Screen NEGATIVE Airway Mallampati Class: II TM Dist: >3cm Neck ROM: Full Heart: RRR Lungs: CTA Assessment and Plan Final Anesthetic Review Family History of Problems with Anesthesia: No History of Problems with Anesthesia: No NPO: Yes ASA Class: III and Emergency Final Preanesthetic Review: Meds/Allgs Chart Reviewed, Consent Obtained/Reviewed and Anes Risks/Benef Reviewed Patient Risk: Intermediate Procedure Risk: Low Anesthetic Plan Anesthetic Plan: GA Disposition: Standard PACU
[2023-09-16] MEDS: Losartan Potassium 50 MG TABLET 100 MG PO (09:02)
--- NOTE | 2023-09-16 09:03 | PHA.MEDREC ---
Pharmacy Consult ? Medication Reconciliation Pharmacy has completed the medication reconciliation. Has script for Valtrex in case of shingles outbreak.
--- NOTE | 2023-09-16 09:05 | PC.NURSE ---
Addendum entered by Merry Tomlin RN 09/16/23 09:08: pt taken off of [facility] for transport. pt voided about 1300cc of urine total. Original Note: assumed care of pt at 0700. pt resting quietly in bed all morning. NPO since midnight. vss. report given to OR, RN. pt medicated per mar with Losartan, pt refused Vitamin D, sts she does not take it at home. pt waiting to be transported to OR, Karthik, transporter notified. rr even/unlabored. call santana within pt reach. plan of care ongoing.
--- NOTE | 2023-09-16 09:10 | PC.NURSE ---
pt off unit to surgery, left to surgery.
--- NOTE | 2023-09-16 09:46 | PM.EVENT ---
Event Note Date of Service: 09/18/23 Event Note: Elderly woman wiht chronic hypotonic hyponatremia Suggest Discontinue HCTZ Restrict PO Water intake Check serum sodium Q 8 hr x 3 Goal pNa > 130 over 24 hours No need for 3% NACl or Urea powder yet Full consult to follow Time Spent With Patient Time: Total time managing care of this patient today ____ minutes.
--- NOTE | 2023-09-16 11:02 | PM.OP ---
Brief Operative Note Date of Service: 09/16/23 Pre-op diagnosis: Left hip minimally displaced femoral neck fracture Post-op diagnosis: same Procedure: Closed reduction and percutaneous pinning of left hip minimally displaced femoral neck fracture Implants: 3 cannulated screws (6.5 mm Shannon screws measuring 85 mm in length, 80 mm in length, 80 mm in length) Surgeon: Kalen Mccloud MD Anesthesia: GLMA Was an Director Of Healthcare Systems used for this Procedure?: No Estimated blood loss (mL): 25 Pathology: none sent Condition: stable Disposition: PACU
--- NOTE | 2023-09-16 11:03 | W.PM.OPN ---
Operative Note Operative Note Date of Service: 09/16/23 Narrative: After the patient was identified as Ascencion Castillo and her left hip was initialed by myself they were brought to the operating room where general anesthesia anesthesia was induced by the anesthesiologist in routine fashion. Because of the patient's allergy to amoxicillin she was given 900 mg of IV clindamycin for infection prophylaxis. The patient was then gently transferred from the hospital bed onto the fracture table. The patient's right lower extremity was placed into the well leg roper. The patient's left lower extremity was placed in gentle in-line traction with their patella parallel to the floor. All bony prominences were well padded. C-arm AP and lateral radiographs were taken to confirm good fracture reduction. The patient's left hip region was prepped and draped in sterile fashion. A formal time-out was completed. A #10 scalpel blade was used to make a 5 cm incision at the level of the lesser trochanter along the lateral aspect of the patient's thigh. A guidewire was then placed into the inferior aspect of the femoral neck on the AP view and the center of the femoral neck on the lateral view. A 2nd guidewire was then placed into the superior aspect of the femoral neck on the AP view and the posterior aspect of the femoral neck on the lateral view. A 3rd guidewire was then placed into the superior aspect of the femoral neck on the AP view and the anterior aspect of the femoral neck on the lateral view. The lengths of the 3 guidewires were measured. The inferior guidewire measured 90 mm in length. The 90 mm screw was placed over the guidewire. It was decided that the 90 mm screw was somewhat long so the 90 mm screw was switched to an 85 mm screw. The superior/posterior screw measured 85 mm in length. The 85 mm screw was placed over the guidewire. The 85 mm screw was somewhat long so the 85 mm screw was switched to an 80 mm screw. The superior/anterior screw measured 80 mm in length. The 80 mm screw was placed over the guidewire in routine fashion. Final C-arm AP and lateral radiographs were taken to confirm good fracture reduction as well as hardware placement. All 3 guidewires were removed. The wound was irrigated with copious amounts of normal saline solution. The fascia rad was closed with #1 Vicryl [id number] interrupted suture. The wound was once again irrigated. The subcutaneous tissues were closed with 0 Vicryl and 2-0 Vicryl interrupted suture. Skin was closed with skin naldo. Dry sterile dressing was placed over the incision. The patient was gently transferred from the fracture table onto their hospital bed. The patient was awoken and extubated in the operating room. The patient was transferred to the recovery room in stable condition.
--- NOTE | 2023-09-16 12:19 | PC.NURSE ---
admission sheet complete on pt.
[2023-09-16 13:23] LABS: Creatinine Urine 16.44 mg/dL
[2023-09-16 13:39] LABS: Osmolality Urine 220 mosm/kg (373-1093)
--- NOTE | 2023-09-16 14:28 | HO.PM.IMPN ---
Subjective Subjective Date of Service: 09/16/23 Interval History: Being followed for left hip fracture status post surgery, patient denies hip pain, admits to have high pain threshold, denies nausea, vomiting, no LH, admits to drinking plenty of fluid, avoids salt intake has chronic low sodium, drink plenty of fluids and take wine couple glasses with dinner every night no prior history of withdrawal. Review of Systems All other system reviewed and negative. Physical Exam Vital Signs: Vital Signs: Last Vital Signs Temp 96.9 F 09/16/23 12:02 Pulse 75 09/16/23 12:02 Resp 16 09/16/23 12:02 BP 165/76 H 09/16/23 12:02 Pulse Ox 99 09/16/23 12:02 O2 Del Method Room Air 09/16/23 12:02 BMI result Body Mass Index 21.2 Const: Other: General awake alert x3, resting comfortably in no acute distress. Anicteric sclera Neck supple no JVD. CVS regular rate rhythm, Respiratory lungs clear to auscultation, no respiratory distress, no wheeze, no rhonchi. Gastrointestinal abdomen soft, non tender, bowel sounds audible, no guarding , no rigidity. Extremities no edema. Left hip dressing in place Neuro nonfocal , speech clear. Skin no rash Psych appropriate affect Objective Data Active Medications Acetaminophen (Acetaminophen 325 Mg Tablet) 650 mg PO Q6H PRN PRN Reason: Pain, Mild (Pain Scale 1-3) Al Hydroxide/Mg Hydroxide (Magnesium Hydrox/Alum Hydrox 30 Ml Oral.Susp) 30 ml PO Q4H PRN PRN Reason: Heartburn/Nausea Aspirin (Aspirin 325 Mg Tablet) 325 mg PO BID [facility] Fentanyl (Fentanyl Citrate/Pf 100 Mcg/2 Ml Vial) 25 mcg IVPUSH Q5M PRN; Protocol PRN Reason: Pain, Moderate(Pain Scale 4-6) Dextrose/Sodium Chloride (D5ns) 1,000 mls @ 100 mls/hr IVCONT .Q10H [facility] Last Admin: 09/16/23 12:38 Dose: 100 mls/hr Documented By: ANDRESSA Clindamycin Phosphate (Cleocin) 900 mg in 50 mls @ 50 mls/hr IV Q8H [facility] Stop: 09/17/23 09:45 Losartan Potassium (Losartan Potassium 50 Mg Tablet) 100 mg PO DAILY [facility]; Protocol Last Admin: 09/16/23 09:02 Dose: 100 mg Documented By: CLARI Melatonin (Melatonin 3 Mg Tablet) 6 mg PO BEDTIME PRN PRN Reason: Insomnia Ondansetron HCl (Ondansetron Hcl 4 Mg/2 Ml Vial) 4 mg IVPUSH Q8H PRN PRN Reason: Nausea and Vomiting Ondansetron HCl (Ondansetron Hcl 4 Mg/2 Ml Vial) 4 mg IVPUSH ONCE PRN PRN Reason: Nausea and Vomiting Oxycodone HCl (Oxycodone Hcl Immed Release 5 Mg Tablet) 2.5 mg PO Q3H PRN PRN Reason: Pain, Moderate(Pain Scale 4-6) Oxycodone HCl (Oxycodone Hcl Immed Release 5 Mg Tablet) 5 mg PO Q3H PRN PRN Reason: Pain, Severe (Pain Scale 7-10) Sodium Chloride (0.9 % Sodium Chloride Flush 3 Ml Syringe) 3 ml IVFLUSH QSIAFT [facility] Last Admin: 09/16/23 08:40 Dose: Not Given Documented By: CLARI Non-Admin Reason: IV Running Sodium Chloride (0.9 % Sodium Chloride Flush 3 Ml Syringe) [facility] Vitamin D (Cholecalciferol (Vitamin D3) 25 Mcg Tablet) 50 mcg PO DAILY [facility] Last Admin: 09/16/23 09:02 Dose: Not Given Documented By: CLARI Non-Admin Reason: Patient Refused Labs 09/16/23 06:12 09/16/23 06:12 Labs: Laboratory Results - last 24 hr 09/15/23 09/16/23 09/16/23 23:44 06:12 Unknown MCV 89.0 88.8 MCH 32.2 32.2 MCHC 36.2 H 36.3 H RDW 12.0 11.9 Plt Count 204 178 MPV 8.8 L 8.9 L Immature Gran % (Auto) 0.6 H Neut % (Auto) 83.8 H Lymph % (Auto) 9.5 L [place] % (Auto) 5.6 Eos % (Auto) 0.3 Baso % (Auto) 0.2 Lymph # (Auto) 1.1 L [place] # (Auto) 0.6 Eos # (Auto) 0.0 Baso # (Auto) 0.0 Abs Immat Gran (auto) 0.07 H Absolute Neuts (auto) 9.6 H Absolute Nucleated RBC 0.000 0.000 Nucleated RBC % (auto) 0.0 0.0 PT 11.0 L INR 0.9 Anion Gap 17 13 Estim Creat Clear Calc 66.7 72.8 Estimated GFR > 60 > 60 Random Glucose 91 114 Osmolality 258 L Calcium 8.8 8.7 Total Bilirubin 0.5 AST 30 ALT 15 Alkaline Phosphatase 63 Total Protein 7.4 Albumin 4.1 TSH 0.88 Hold Yellow Top See Note Urine Osmolality 220 L Ur Random Sodium 58.0 Urine Creatinine 16.44 Ethyl Alcohol 118 Blood Type B Positive Antibody Screen NEGATIVE Assessment and Plan (1) Femoral neck fracture: Status: Acute (2) Hyponatremia: Status: Acute (3) Hypertension: Status: Acute Plan Closed reduction and percutaneous pinning of left hip minimally displaced femoral neck fracture 73-year-old white female with past medical history of hyponatremia, chronic low back pain, status post laminectomy, hypertension here with: 1. Left femoral neck fracture Status post Closed reduction and percutaneous pinning of left hip minimally displaced femoral neck fracture POD #0 Continue regular diet, DC IV fluids Continue aspirin 325 mg b.i.d. for prophylaxis, oxycodone for pain medication Will add as needed MiraLax and encourage incentive spirometry. PT eval 2. Hyponatremia euvolemic and appears to be a chronic problem likely due to excessive fluid intake , decreased salt intake and beer potomania and could be thiazide associated will stop HCTZ/fluid restriction to 1200 mL, will follow BMP today and at am. 3. Hypertension continue Losartan, hydrochlorothiazide discontinued as above, if noted to have elevated blood pressures will consider Norvasc. DVT: Aspirin b.i.d. CODE STATUS: Full code Patient need continued inpatient hospitalization for postoperative care status post left hip surgery and close monitoring of electrolytes and PT eval. Quality Stroke Does the patient have a stroke diagnosis?: No VTE Prior VTE?: No VTE Risk Level:: Surgical - high VTE Device Contraindication: N/A - Device Ordered VTE Drug Contraindication: N/A - Med Ordered
--- NOTE | 2023-09-16 15:51 | MHC.CM.PN ---
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
[2023-09-16 16:40] LABS: Anion Gap 14 (12-20); Blood Urea Nitrogen 5 mg/dL (9-16); Calcium 8.7 mg/dL (8.4-10.2); Carbon Dioxide 22 mmol/L (22-29); Chloride 100 mmol/L (96-108); Creatinine Clr Calc Pharmacy 67.7; Estimated Glomerular Filt Rate > 60; Glucose Random 175 mg/dL (60-115); Potassium 3.6 mmol/L (3.3-5.1); Sodium 132 mmol/L (135-145)
[2023-09-16] MEDS: Clindamycin Phosphate/D5W 900 MG/50 ML PIGGYBACK 50 MG IV (17:11)
[2023-09-16] MEDS: Aspirin 325 MG TABLET PO (20:36)
[2023-09-17] MEDS: Clindamycin Phosphate/D5W 900 MG/50 ML PIGGYBACK 50 MG IV (01:57)
[2023-09-17 03:48] VITALS: BP 150/67; PULSE 84; RESP 14; TEMP 35.9; O2SAT 100
[2023-09-17] MEDS: 0.9 % Sodium Chloride Flush 3 ML SYRINGE IVFLUSH ×3 (07:52→19:04)
[2023-09-17] MEDS: Losartan Potassium 50 MG TABLET 100 MG PO (07:52)
[2023-09-17 08:00] VITALS: BP 163/71; PULSE 89; RESP 15; TEMP 36.8; O2SAT 100
[2023-09-17 08:50] VITALS: O2SAT 100
[2023-09-17 09:14] LABS: Hematocrit 34.4 % (37.0-47.0)
[2023-09-17 09:37] LABS: Anion Gap 13 (12-20); Blood Urea Nitrogen 9 mg/dL (9-16); Carbon Dioxide 26 mmol/L (22-29); Chloride 100 mmol/L (96-108); Estimated Glomerular Filt Rate > 60; Glucose Fasting 94 mg/dL (60-99); Sodium 135 mmol/L (135-145)
--- NOTE | 2023-09-17 10:14 | PM.PNORT ---
Subjective Subjective Date of Service: 09/17/23 Principal diagnosis: left hip femoral neck fracture Interval history: Ms. Castillo is seen resting in bed this AM c/o mild to moderate left hip pain. She denies any f/c, sob, cp. Physical Exam Vital Signs: Vital Signs: Last Vital Signs Temp 98.2 F 09/17/23 08:00 Pulse 89 09/17/23 08:00 Resp 15 09/17/23 08:00 BP 163/71 H 09/17/23 08:00 Pulse Ox 100 09/17/23 08:50 O2 Del Method Room Air 09/17/23 08:50 BMI result Body Mass Index 21.2 Extrem: Other: Left hip - dressing clean, EHL/sens nl Procedures Date of Service Date of Service: 09/17/23 Progress Note: A&P Assessment and plan (1) Femoral neck fracture: Status: Acute Plan Ms. Castillo is doing well this AM s/p pinnning of her left hip fracture yesterday. Continue to mobilize as tolerated, full wt bearing, no total hip precautions needed. Will follow. Time Spent With Patient Time: Total time managing care of this patient today __12__ minutes. Quality Stroke Does the patient have a stroke diagnosis?: No VTE Prior VTE?: No VTE Risk Level:: Surgical - high VTE Device Contraindication: N/A - Device Ordered VTE Drug Contraindication: N/A - Med Ordered
[2023-09-17 11:05] VITALS: O2SAT 100
--- NOTE | 2023-09-17 11:38 | HO.POSTANES ---
Post Anesthesia Evaluation Post Anesthesia Evaluation Date of Service: 09/16/23 Vital Signs: Vital Signs Temp Pulse Resp BP Pulse Ox O2 Del Method 09/17/23 11:05 100 09/17/23 08:50 100 Room Air 09/17/23 08:00 98.2 F 89 15 163/71 H 100 Room Air 09/17/23 03:48 96.7 F L 84 14 150/67 H 100 Room Air Anesthesia: General Endotracheal-GETA Mental Status: Awake Pain Control: Satisfactory Nausea/Vomiting: None Hydration: Adequate Anesthesia-Related Issues: No Anes. Related Issues
--- NOTE | 2023-09-17 12:23 | HO.PM.IMPN ---
Subjective Subjective Date of Service: 09/17/23 Interval History: POD1 hip pain controlled Na normalized Review of Systems Review of Systems: Yes all other systems are reviewed and are negative Physical Exam Vital Signs: Vital Signs: Last Vital Signs Temp 98.2 F 09/17/23 08:00 Pulse 89 09/17/23 08:00 Resp 15 09/17/23 08:00 BP 163/71 H 09/17/23 08:00 Pulse Ox 100 09/17/23 11:05 O2 Del Method Room Air 09/17/23 08:50 BMI result Body Mass Index 21.2 Gen: in no acute distress HEENT: sclera anicteric, moist mucus membranes Neck: supple Lungs: clear to auscultation bilaterally Heart: regular rate and rhythm, no murmurs Abd: soft, non-tender, non-distended Ext: no edema, L hip with dry dressing Skin: warm/well-perfused Neuro: alert and oriented x3, no focal findings Psych: appropriate affect Objective Data Active Medications Acetaminophen (Acetaminophen 325 Mg Tablet) 650 mg PO Q6H PRN PRN Reason: Pain, Mild (Pain Scale 1-3) Al Hydroxide/Mg Hydroxide (Magnesium Hydrox/Alum Hydrox 30 Ml Oral.Susp) 30 ml PO Q4H PRN PRN Reason: Heartburn/Nausea Aspirin (Aspirin 325 Mg Tablet) 325 mg PO BID [facility] Last Admin: 09/17/23 07:51 Dose: Not Given Documented By: HOWARD Non-Admin Reason: Patient Refused Fentanyl (Fentanyl Citrate/Pf 100 Mcg/2 Ml Vial) 25 mcg IVPUSH Q5M PRN; Protocol PRN Reason: Pain, Moderate(Pain Scale 4-6) Losartan Potassium (Losartan Potassium 50 Mg Tablet) 100 mg PO DAILY [facility]; Protocol Last Admin: 09/17/23 07:52 Dose: 100 mg Documented By: HOWARD Melatonin (Melatonin 3 Mg Tablet) 6 mg PO BEDTIME PRN PRN Reason: Insomnia Ondansetron HCl (Ondansetron Hcl 4 Mg/2 Ml Vial) 4 mg IVPUSH Q8H PRN PRN Reason: Nausea and Vomiting Ondansetron HCl (Ondansetron Hcl 4 Mg/2 Ml Vial) 4 mg IVPUSH ONCE PRN PRN Reason: Nausea and Vomiting Oxycodone HCl (Oxycodone Hcl Immed Release 5 Mg Tablet) 2.5 mg PO Q3H PRN PRN Reason: Pain, Moderate(Pain Scale 4-6) Oxycodone HCl (Oxycodone Hcl Immed Release 5 Mg Tablet) 5 mg PO Q3H PRN PRN Reason: Pain, Severe (Pain Scale 7-10) Polyethylene Glycol (Polyethylene Glycol 3350 17 Gm Powd.Pack) 17 gm PO DAILY PRN PRN Reason: constipation Sodium Chloride (0.9 % Sodium Chloride Flush 3 Ml Syringe) 3 ml IVFLUSH QSHIFT [facility] Last Admin: 09/17/23 07:52 Dose: 3 ml Documented By: HOWARD Sodium Chloride (0.9 % Sodium Chloride Flush 3 Ml Syringe) [facility] Last Admin: 09/17/23 07:05 Dose: Not Given Documented By: HOWARD Non-Admin Reason: Duplicate Order Vitamin D (Cholecalciferol (Vitamin D3) 25 Mcg Tablet) 50 mcg PO DAILY [facility] Last Admin: 09/17/23 07:51 Dose: Not Given Documented By: HOWARD Non-Admin Reason: Patient Refused Labs 09/17/23 08:22 09/17/23 08:22 Labs: Laboratory Results - last 24 hr 09/16/23 09/16/23 09/17/23 16:11 Unknown 08:22 Anion Gap 14 13 Estim Creat Clear Calc 67.7 70.0 Estimated GFR > 60 > 60 Random Glucose 175 H Fasting Glucose 94 Calcium 8.7 9.0 Urine Osmolality 220 L Ur Random Sodium 58.0 Urine Creatinine 16.44 Assessment and Plan (1) Femoral neck fracture: Status: Acute (2) Hyponatremia: Status: Acute (3) Hypertension: Status: Acute Plan d3 73yo F with hx hyponatremia, chronic LBP s/p laminectomy, HTN presenting after mechanical fall, sustained L femoral neck fx L femoral neck fx - POD1 closed reduction/percutaneous pinning - ASA for VTE ppx - PT eval pending euvolemic hypoNa - likely due to excess fluid intake, decreased salt intake, thiazide, and beer potomania - d/c HCTZ, loosen fluid restriction from 1200 to 1500 mL, repeat BMP in AM HTN- continue losartan VTE ppx - ASA dispo - PT eval pending Total time managing care of this patient today: 35 minutes. Quality Stroke Does the patient have a stroke diagnosis?: No VTE Prior VTE?: No VTE Risk Level:: Surgical - high VTE Device Contraindication: N/A - Device Ordered VTE Drug Contraindication: N/A - Med Ordered
[2023-09-17 15:41] VITALS: BP 174/77; PULSE 93; RESP 16; TEMP 37.1; O2SAT 99
[2023-09-17 19:20] VITALS: BP 153/81; PULSE 101; RESP 18; TEMP 37.1; O2SAT 100
[2023-09-18 03:16] VITALS: BP 153/81; PULSE 89; RESP 18; TEMP 36.6; O2SAT 97
[2023-09-18 06:52] LABS: Anion Gap 11 (12-20); Blood Urea Nitrogen 11 mg/dL (9-16); Calcium 9.1 mg/dL (8.4-10.2); Carbon Dioxide 27 mmol/L (22-29); Chloride 103 mmol/L (96-108); Creatinine Clr Calc Pharmacy 71.1; Estimated Glomerular Filt Rate > 60; Glucose Random 93 mg/dL (60-115); Potassium 4.8 mmol/L (3.3-5.1); Sodium 136 mmol/L (135-145)
[2023-09-18 07:52] VITALS: BP 173/75; PULSE 85; RESP 16; TEMP 36.3; O2SAT 99
[2023-09-18 08:00] VITALS: O2SAT 96
[2023-09-18] MEDS: 0.9 % Sodium Chloride Flush 3 ML SYRINGE IVFLUSH (08:52)
[2023-09-18] MEDS: Losartan Potassium 50 MG TABLET 100 MG PO (08:53)
--- NOTE | 2023-09-18 09:43 | PM.CNNEP ---
History of Present Illness Reason for Consult Consult date: 09/18/23 Reason for consult: Hyponatremia Chief Complaint Chief complaint: Left Hip Fracture History of Present Illness Narrative: 73-year-old white female with past medical history of hyponatremia, chronic low back pain, status post laminectomy, hypertension presents to the ER via EMS after an accidental mechanical fall at home complaining of severe pain in the left hip and inability to bear weight. Consult requested for hyponatremia. Serum sodium was 125 on admission. She was on hydrochlorothiazide. This was discontinued and currently with fluid restriction sodium is improved to 134 gradually. Review of Systems Review of Systems No headache nausea vomiting No abdominal pain diarrhea constipation No fever no PMFSH Past Medical History Medical History History of breast cancer Essential hypertension Chronic low back pain Family History Family History Mother Breast cancer Father CHF (congestive heart failure) Surgical History Surgical History H/O laminectomy H/O lumpectomy History of surgery on lower extremity Social History Social History Household Members: Other Housing: Apartment Do you presently have visiting nurse or other home services: No Patient Tobacco Use Status: Never used Tobacco service: No Current occupational status: retired Cognitive needs: No Hearing needs: No Vision needs: Yes Meds Allergies Allergy/AdvReac Type Severity Reaction Status Date / Time amoxicillin [From Augmentin] Allergy Intermediate Hives Verified 07/05/23 16:07 clavulanic acid Allergy Intermediate Hives Verified 07/05/23 16:07 [From Augmentin] doxycycline Allergy Intermediate Hives Verified 07/05/23 16:07 tramadol Allergy Intermediate Hives Verified 07/05/23 16:07 Glycerol oma of wood rosin AdvReac Mild Itching Uncoded 07/05/23 16:07 hexyl cinnamal AdvReac Mild Itching Uncoded 07/05/23 16:07 Active Medications: Current Medications Acetaminophen (Acetaminophen 325 Mg Tablet) 650 mg PO Q6H PRN PRN Reason: Pain, Mild (Pain Scale 1-3) Al Hydroxide/Mg Hydroxide (Magnesium Hydrox/Alum Hydrox 30 Ml Oral.Susp) 30 ml PO Q4H PRN PRN Reason: Heartburn/Nausea Aspirin (Aspirin 325 Mg Tablet) 325 mg PO BID [facility] Last Admin: 09/18/23 08:46 Dose: Not Given Fentanyl (Fentanyl Citrate/Pf 100 Mcg/2 Ml Vial) 25 mcg IVPUSH Q5M PRN; Protocol PRN Reason: Pain, Moderate(Pain Scale 4-6) Losartan Potassium (Losartan Potassium 50 Mg Tablet) 100 mg PO DAILY [facility]; Protocol Last Admin: 09/18/23 08:53 Dose: 100 mg Melatonin (Melatonin 3 Mg Tablet) 6 mg PO BEDTIME PRN PRN Reason: Insomnia Ondansetron HCl (Ondansetron Hcl 4 Mg/2 Ml Vial) 4 mg IVPUSH Q8H PRN PRN Reason: Nausea and Vomiting Ondansetron HCl (Ondansetron Hcl 4 Mg/2 Ml Vial) 4 mg IVPUSH ONCE PRN PRN Reason: Nausea and Vomiting Oxycodone HCl (Oxycodone Hcl Immed Release 5 Mg Tablet) 2.5 mg PO Q3H PRN PRN Reason: Pain, Moderate(Pain Scale 4-6) Oxycodone HCl (Oxycodone Hcl Immed Release 5 Mg Tablet) 5 mg PO Q3H PRN PRN Reason: Pain, Severe (Pain Scale 7-10) Polyethylene Glycol (Polyethylene Glycol 3350 17 Gm Powd.Pack) 17 gm PO DAILY PRN PRN Reason: constipation Sodium Chloride (0.9 % Sodium Chloride Flush 3 Ml Syringe) 3 ml IVFLUSH QSTNFT [facility] Last Admin: 09/18/23 08:52 Dose: 3 ml Sodium Chloride (0.9 % Sodium Chloride Flush 3 Ml Syringe) [facility] Last Admin: 09/18/23 08:52 Dose: Not Given Vitamin D (Cholecalciferol (Vitamin D3) 25 Mcg Tablet) 50 mcg PO DAILY [facility] Last Admin: 09/18/23 08:46 Dose: Not Given Home Medications Medication Instructions Recorded Confirmed Last Taken Type valacyclovir 1 gram tablet 1,000 mg PO BID PRN shingles 07/05/23 09/16/23 Unknown History hydrochlorothiazide 25 mg tablet 12.5 mg PO DAILY 09/16/23 09/16/23 09/15/23 History losartan 100 mg tablet 100 mg PO DAILY 09/16/23 09/16/23 09/15/23 History Physical Exam Vital Signs: Last Vital Signs Temp 97.3 F 09/18/23 07:52 Pulse 85 09/18/23 07:52 Resp 16 09/18/23 07:52 BP 173/75 H 09/18/23 07:52 Pulse Ox 96 09/18/23 08:00 O2 Del Method Room Air 09/18/23 08:00 BMI result Body Mass Index 21.2 Comfortable Neck is supple no JVD Mucosa moist Lungs air entry equal Heart darvin gallop. Abdomen is soft nontender. Neuro alert and awake. Extremities no edema. Results Lab Results 09/17/23 08:22 09/18/23 05:53 Lab results: Chemistry 09/15/23 09/16/23 09/16/23 23:44 06:12 16:11 Sodium 125 L 126 L 132 L Potassium 3.9 3.8 3.6 Carbon Dioxide 22 22 22 BUN 8 L 7 L 5 L Creatinine 0.61 0.56 0.62 Calcium 8.8 8.7 8.7 09/17/23 09/18/23 08:22 05:53 Sodium 135 136 Potassium 4.0 4.8 Carbon Dioxide 26 27 BUN 9 11 Creatinine 0.60 0.59 Calcium 9.0 9.1 Hematology 09/15/23 09/16/23 09/17/23 23:44 06:12 08:22 WBC 11.5 H 7.8 Hgb 13.5 13.5 12.0 Plt Count 204 178 Urine Studies 09/16/23 Unknown Urine Osmolality 220 L Urine Creatinine 16.44 Assessment and Plan (1) Hyponatremia: Status: Acute Plan Hyponatremia due to decreased free water The hydrochlorothiazide could lead to decreased free water clearance. Serum sodium is in normal range at present. I would avoid using hydrochlorothiazide. Keep her on oral free water restriction of 1.5 L. Monitor serum sodium once a day for next few days. No indication for hypertonic saline. She will follow along with team as needed. Procedures Date of Service Date of Service: 09/18/23
--- NOTE | 2023-09-18 10:29 | PM.PNORT ---
Subjective Subjective Date of Service: 09/18/23 Principal diagnosis: left hip femoral neck fracture Interval history: POD2 s/p left hip CRPP. Patient is currently bathing at the sink. She reports no pain. No overnight events. No additional complaints. Physical Exam Vital Signs: Vital Signs: Last Vital Signs Temp 97.3 F 09/18/23 07:52 Pulse 85 09/18/23 07:52 Resp 16 09/18/23 07:52 BP 173/75 H 09/18/23 07:52 Pulse Ox 96 09/18/23 08:00 O2 Del Method Room Air 09/18/23 08:00 BMI result Body Mass Index 21.2 Const: General: cooperative, healthy appearing and no acute distress Resp: Effort & Inspection: normal respiratory effort and able to speak in complete sentences Cardio: Rate: regular rate Peripheral pulses: Peripheral pulses 2+ throughout GI: Palpation (GI): Soft to palpation Skin: Lesions: no lesions Rashes: no rashes Extrem: Other: left hip dressings are c/d/i. NVI. Procedures Date of Service Date of Service: 09/18/23 Progress Note: A&P Assessment and plan (1) Femoral neck fracture: Status: Acute Plan Continue pain mgmnt Continue ASA for dvt ppx continue PT for left hip CRPP Dispo planning- Cleared for d/c from ortho perspective Time Spent With Patient Time: Total time managing care of this patient today ____ minutes. Quality Stroke Does the patient have a stroke diagnosis?: No VTE Prior VTE?: No VTE Risk Level:: Surgical - high VTE Device Contraindication: N/A - Device Ordered VTE Drug Contraindication: N/A - Med Ordered
--- NOTE | 2023-09-18 12:42 | PM.DS ---
DS: Providers Provider Date of Service: 09/18/23 Date of admission: 09/15/23 23:57 Date of discharge: 09/18/23 Primary care physician: None Physician Consults: 09/16/23 04:26 Consult to Nephrology Routine Consulting Provider: Wallace Tijerina Reason for consultation: Hyponatremia DS: Diagnosis Discharge Diagnosis (1) Femoral neck fracture: Status: Acute (2) Hyponatremia: Status: Acute DS: Summary Hospital Course Hospital Course: From the history and physical by the admitting hospitalist, Channing Madera MD, 09/15/23: 73-year-old white female with past medical history of hyponatremia, chronic low back pain, status post laminectomy, hypertension presents to the ER via EMS after an accidental mechanical fall at home complaining of severe pain in the left hip and inability to bear weight. She was walking in her living room where she has polished wooden floors to retrieve the TV remote and turn off the TV when her legs gave way and she fell landing n her left hip. She denies any preceding dizziness, lightheadedness or chest pain. She did not strike her head nor did she loose consciousness. A plain x-ray of the left hip done in the ER showed a subtle left femoral neck fracture . This was discussed with Orthopedic surgical team who recommended medical admission with orthopedic surgery consult. She otherwise denies any cardiac or pulmonary issues and EKG done revealed NSR at 89 bpm with no acute ischemic changes. She otherwise has excellent pre-morbid performance status and is able to walk freely with no limitations. 73yo F with hx hyponatremia, chronic LBP s/p laminectomy, and HTN presenting after mechanical fall and found to have a subtle L femoral neck fx. She was admitted to the hospitalist service. Orthopedics was consulted. She underwent closed reduction with percutaneous pinning on 09/16/23. She did well postoperatively and was started on ASA 325 mg bid for VTE prophylaxis. She was found to have euvolemic hyponatremia likely due to HCTZ use and excess fluid intake. Sodium increased from 125 to 136 at an appropriate rate with fluid restriction. Upon discharge, HCTZ was discontinued and she was counseled to follow a 1800 mL/d fluid restriction and to recheck BMP in 2 days. Placement at acute rehabilitation was recommended but the patient adamantly refused. She also does not have a PCP, so VNA services could not be arranged. She will see PT as an outpatient. She may weight bear as tolerated. She will need Orthopedics follow-up in 2 weeks. She was counseled to establish primary care as soon as possible. Time Attestation Discharge coordination time: Greater than 30 minutes Quality: Safe Use of Opioids Does Pt have an Active Cancer Diagnosis on the Problem List?: No Quality: Stroke Does the patient have a stroke diagnosis?: No Physical Exam Vital Signs: Vital Signs: Last Vital Signs Temp 97.3 F 09/18/23 07:52 Pulse 85 09/18/23 07:52 Resp 16 09/18/23 07:52 BP 173/75 H 09/18/23 07:52 Pulse Ox 96 09/18/23 08:00 O2 Del Method Room Air 09/18/23 08:00 BMI result Body Mass Index 21.2 Gen: in no acute distress HEENT: sclera anicteric, moist mucus membranes Neck: supple Lungs: clear to auscultation bilaterally Heart: regular rate and rhythm, no murmurs Abd: soft, non-tender, non-distended Ext: no edema, L hip with dry dressing Skin: warm/well-perfused Neuro: alert and oriented x3, no focal findings Psych: appropriate affect DS: Data Data Completed and Pending Completed studies during hospitalization [Text1]: Laboratory Results WBC 7.8 X10*3/uL (4.8-10.8) 09/16/23 06:12 RBC 4.19 X10*6/uL (4.20-5.50) L 09/16/23 06:12 Hgb 12.0 g/dl (12.0-16.0) 09/17/23 08:22 Hct 34.4 % (37.0-47.0) L 09/17/23 08:22 MCV 88.8 fL (80.0-98.0) 09/16/23 06:12 MCH 32.2 pg (27.0-33.0) 09/16/23 06:12 MCHC 36.3 g/dl (31.0-35.0) H 09/16/23 06:12 RDW 11.9 % (11.0-16.0) 09/16/23 06:12 Plt Count 178 X10*3/uL (160-400) 09/16/23 06:12 MPV 8.9 fL (9.4-12.3) L 09/16/23 06:12 Immature Gran % (Auto) 0.6 % (0.0-0.4) H 09/15/23 23:44 Neut % (Auto) 83.8 % (45-73) H 09/15/23 23:44 Lymph % (Auto) 9.5 % (20-40) L 09/15/23 23:44 [place] % (Auto) 5.6 % (2-11) 09/15/23 23:44 Eos % (Auto) 0.3 % (0-4) 09/15/23 23:44 Baso % (Auto) 0.2 % (0-2) 09/15/23 23:44 Lymph # (Auto) 1.1 X10*3/uL (1.2-4.9) L 09/15/23 23:44 [place] # (Auto) 0.6 X10*3/uL (0.1-1.2) 09/15/23 23:44 Eos # (Auto) 0.0 X10*3/uL (0.0-0.4) 09/15/23 23:44 Baso # (Auto) 0.0 X10*3/uL (0.0-0.2) 09/15/23 23:44 Abs Immat Gran (auto) 0.07 X10*3/uL (0.00-0.03) H 09/15/23 23:44 Absolute Neuts (auto) 9.6 x10*3/uL (2.0-8.3) H 09/15/23 23:44 Absolute Nucleated RBC 0.000 X10*3/uL (0.0-0.012) 09/16/23 06:12 Nucleated RBC % (auto) 0.0 /100WBC (0.0-0.2) 09/16/23 06:12 Hold Purple Top SEE NOTE 09/18/23 05:53 PT 11.0 SEC (11.1-13.3) L 09/15/23 23:44 INR 0.9 (0.9-1.1) 09/15/23 23:44 Sodium 136 mmol/L (135-145) 09/18/23 05:53 Potassium 4.8 mmol/L (3.3-5.1) 09/18/23 05:53 Chloride 103 mmol/L (96-108) 09/18/23 05:53 Carbon Dioxide 27 mmol/L (22-29) 09/18/23 05:53 Anion Gap 11 (12-20) L 09/18/23 05:53 BUN 11 mg/dL (9-16) 09/18/23 05:53 Creatinine 0.59 mg/dL (0.5-1.4) 09/18/23 05:53 Estim Creat Clear Calc 71.1 09/18/23 05:53 Estimated GFR > 60 09/18/23 05:53 Random Glucose 93 mg/dL (60-115) 09/18/23 05:53 Fasting Glucose 94 mg/dL (60-99) 09/17/23 08:22 Osmolality 258 mosm/kg (281-305) L 09/16/23 06:12 Calcium 9.1 mg/dL (8.4-10.2) 09/18/23 05:53 Total Bilirubin 0.5 mg/dL (0.0-1.0) 09/15/23 23:44 AST 30 U/L (5-31) 09/15/23 23:44 ALT 15 U/L (0-31) 09/15/23 23:44 Alkaline Phosphatase 63 U/L (39-117) 09/15/23 23:44 Total Protein 7.4 g/dL (6.5-8.0) 09/15/23 23:44 Albumin 4.1 g/dL (3.5-5.0) 09/15/23 23:44 TSH 0.88 uIU/mL (0.32-4.0) 09/16/23 06:12 Hold Yellow Top See Note 09/15/23 23:44 Urine Osmolality 220 mosm/kg (373-1093) L 09/16/23 Unknown Ur Random Sodium 58.0 mmol/L 09/16/23 Unknown Urine Creatinine 16.44 mg/dL 09/16/23 Unknown Ethyl Alcohol 118 mg/dL 09/15/23 23:44 Blood Type B Positive 09/15/23 23:44 Antibody Screen NEGATIVE 09/15/23 23:44 Impressions Hip/Pelvis X-Ray 09/15/23 21:59 IMPRESSION: Subtle impacted subcapital left femoral neck fracture with mild cortical step-off along the lateral aspect. Discharge Plan Discharge Anticipated Discharge Date/Time: 09/18/23 12:38 Patient Disposition: Home, Self-Care Discharge Diagnosis: femoral neck fracture hyponatremia Referrals: Physician,Jeffry [Primary Care Provider] - 1 Week Kalen Mccloud MD [Physician] - 2 Weeks [facility] [place] [facility] - 1 Week (needs PCP [place]) [place] [facility] [place] 3-5 Days Discharge Medications: New aspirin 325 mg Tablet 325 mg PO BID Qty: 60 0RF oxycodone 5 mg Tablet 2.5 mg PO Q3H PRN (Reason: Pain, Moderate(Pain Scale 4-6)) Qty: 12 0RF Rx Instructions: Partial Fill upon patient request. Continued losartan 100 mg tablet 100 mg PO DAILY valacyclovir 1 gram tablet 1,000 mg PO BID PRN (Reason: shingles) Rx Instructions: for shingles break out (DME) blood pressure monitor Kit See Rx Instructions .Route Qty: 1 0RF Rx Instructions: As directed Discontinued hydrochlorothiazide 25 mg tablet 12.5 mg PO DAILY Discharge Orders: Discharge Order (Routine); Ordered 09/18/23 Ordered By: Gigi James Diet: Advance to usual diet Activity on Discharge: As tolerated Stand Alone Forms: Patient Portal Discharge page Other Ambulatory Orders: Basic Metabolic Panel (Routine) Timeframe: 2 Days Facility: [facility] - Location: Laboratory Ordered By: Gigi James Care Plan Goals: recovery from fracture Health Concerns: femoral neck fracture hyponatremia Plan of Treatment: weight bear as tolerated on LLE outpatient physical therapy at [facility] [place] follow up with [facility] [place] Orthopedics in 2 weeks take acetaminophen for mild-moderate pain, oxycodone for severe pain take aspirin 325 mg twice daily for a month to prevent deep vein thrombosis stop hydrochlorothiazide restrict fluid to 1800 mL/day recheck labs [basic metabolic panel] in 2 days establish primary care as soon as possible Assessment: See Discharge Summary.
--- NOTE | 2023-09-18 14:59 | MHC.CM.PN ---
EMR reviewed. Per hospitalist and ortho PA patient is cleared for DC. Discussed DC options with patient and patient continues to decline acute rehab/STR. Not eligible for home services, as she does not have a current PCP. Patient prefers to return home and start outpatient physical therapy. Ortho and hospitalist are aware. CM requested PT order to be faxed to [facility] from ortho, [facility] will contact patient to schedule. Patient's sister will provide transportation to PT appts. Patient also requesting rx for walker. Primary RN requested from ortho. CM provided location for DME supplier. [employer] delivered. Patient's sister will provide transportation home at 4pm. RN aware.
[2023-09-18 16:02] VITALS: O2SAT 96
== END 2023-09-18 16:21 | disposition home health service (06) | DRG 481 ==
LOC: HO.ED 09-16 00:02 → HO.EDOVER 09-16 00:03 → HO.S3 09-16 11:09
PROVIDERS: Hospitalist; Nurse Practitioner Family; Orthopaedic Surgery; Admitting Provider Internal Medicine; Emergency Provider Emergency Medicine; Visit Provider Family Medicine
PROC: 0QS736Z Reposition Left Upper Femur with Intramedullary Internal Fixation Device, Percutaneous Approach (ICD-10-PCS; principal; 2023-09-16 09:00)
DX: S72.012A Unspecified intracapsular fracture of left femur, initial encounter for closed fracture (principal); E87.1 Hypo-osmolality and hyponatremia; I10 Essential (primary) hypertension; M54.59 Other low back pain; G89.29 Other chronic pain; W19.XXXA Unspecified fall, initial encounter; Z88.0 Allergy status to penicillin; Z79.899 Other long term (current) drug therapy
CPT/HCPCS: 36415; 73502; 80048; 80053; 80307; 82570; 83930; 83935; 84300; 84443; 85014; 85018; 85025; 85027; 85610; 86850; 86900; 86901; 93005; 97162; 97530; 99024; 99285; C1713; C1769; J0131; J0690; J0736; J1100; J1650; J2250; J2704; J2795; J3010

== ENCOUNTER → 2023-09-15 21:24 | Outpatient (BNV) | payer MEDICARE, SELFPAY | PROVIDERS: Admitting Provider Internal Medicine; Emergency Provider Emergency Medicine; Visit Provider Internal Medicine | DX: S72.002A Fracture of unspecified part of neck of left femur, initial encounter for closed fracture (principal); R94.31 Abnormal electrocardiogram [ECG] [EKG]; I10 Essential (primary) hypertension | CPT/HCPCS: 93010 ==

== ENCOUNTER → 2023-09-15 23:57 | Outpatient (BNV) | payer MEDICARE, SELFPAY | PROVIDERS: Admitting Provider Internal Medicine; Emergency Provider Emergency Medicine; Visit Provider Physician Assistant | DX: S72.002A Fracture of unspecified part of neck of left femur, initial encounter for closed fracture (principal) | CPT/HCPCS: 27235; 99499 ==

== ENCOUNTER → 2023-09-15 23:57 | Outpatient (BNV) | payer MEDICARE, SELFPAY | PROVIDERS: Admitting Provider Internal Medicine; Emergency Provider Emergency Medicine; Visit Provider Internal Medicine | DX: S72.002A Fracture of unspecified part of neck of left femur, initial encounter for closed fracture (principal); E87.1 Hypo-osmolality and hyponatremia; I10 Essential (primary) hypertension | CPT/HCPCS: 99223; 99232; 99233; 99239 ==

== ENCOUNTER → 2023-09-15 23:57 | Outpatient (BNV) | payer MEDICARE, SELFPAY | PROVIDERS: Admitting Provider Internal Medicine; Emergency Provider Emergency Medicine; Visit Provider Internal Medicine Hypertension Specialist | DX: E87.1 Hypo-osmolality and hyponatremia (principal) | CPT/HCPCS: 99222; 99499 ==

== ENCOUNTER 2023-09-20 10:02 | Outpatient (REF) | payer MEDICARE, SELFPAY | END 2023-09-20 10:03 | disposition home or self-care (01) | LOC: HO.LAB 10:02 | PROVIDERS: Visit Provider Family Medicine | DX: E87.1 Hypo-osmolality and hyponatremia (principal); E55.9 Vitamin D deficiency, unspecified | CPT/HCPCS: 36415; 80048; 82306 ==

== ENCOUNTER 2023-10-04 11:45 | Outpatient (REF) | payer MEDICARE, SELFPAY ==
--- NOTE | ~2023-10-04 | XR_ITS ---
EXAMINATION: XR PELVIS CLINICAL INFORMATION: Pain in unspecified hip. COMPARISON: Fluoroscopic OR images of 09/16/2023. Left hip with pelvis 09/15/2023. TECHNIQUE: AP view of the pelvis. FINDINGS: Degenerative changes in the imaged lower lumbar spine with stabilization hardware. Redemonstration of 3 compression screws traversing previously demonstrated fracture through the left intertrochanteric neck and head region. Mild degenerative changes in bilateral hips on single AP view. XR/XR pelvis 1-2V IMPRESSION: Redemonstration of 3 compression screws traversing previously demonstrated fracture through the left intertrochanteric neck and head region. Correlation with clinical exam recommended to determine further management including additional imaging with lateral views of the hip. If there is clinical concern for fracture or other underlying pathology, MRI could be obtained for further evaluation.
== END 2023-10-04 11:46 | disposition home or self-care (01) ==
LOC: HO.HOSX 11:45
PROVIDERS: Visit Provider Physician Assistant
DX: M25.552 Pain in left hip (principal); S72.002A Fracture of unspecified part of neck of left femur, initial encounter for closed fracture; X58.XXXA Exposure to other specified factors, initial encounter; Y93.9 Activity, unspecified; Y92.9 Unspecified place or not applicable; Y99.9 Unspecified external cause status; Z96.642 Presence of left artificial hip joint
CPT/HCPCS: 72170; 99212

== ENCOUNTER 2023-10-04 14:20 | Outpatient (AMB) | payer MEDICARE, SELFPAY ==
--- NOTE | 2023-10-04 14:32 | A.OFFVIS_ITS ---
Intake Intake Visit Reasons: PO- LT femut fx IMN 09/15/24 Intake Note: Raven is a 73 year old female who presents today for a post op appointment s/p left femur IMN 09/15/23 . Patient reports she is doing well, however she has discomfort behind her left knee. No other questions or concerns. Allergies amoxicillin [From Augmentin] Allergy (Intermediate, Verified 10/04/23 14:37) Hives clavulanic acid [From Augmentin] Allergy (Intermediate, Verified 10/04/23 14:37) Hives doxycycline Allergy (Intermediate, Verified 10/04/23 14:37) Hives tramadol Allergy (Intermediate, Verified 10/04/23 14:37) Hives Glycerol oma of wood rosin Adverse Reaction (Mild, Uncoded 07/05/23 16:07) Itching hexyl cinnamal Adverse Reaction (Mild, Uncoded 07/05/23 16:07) Itching HPI PO- LT femut fx IMN 09/15/24 HPI Details 73-year-old female [facility] status post left hip femoral neck closed reduction and percutaneous pinning, which was performed on 09/16/[address] Mccloud. The patient reports she is doing well. She does states she has some discomfort behind her left knee. [facility] Medical History History of breast cancer Essential hypertension Chronic low back pain Surgical History H/O laminectomy H/O lumpectomy History of surgery on lower extremity Family History Mother Breast cancer Father CHF (congestive heart failure) Social History Household Members: Other Housing: Apartment Do you presently have visiting nurse or other home services: No Patient Tobacco Use Status: Never used Tobacco service: No Current occupational status: retired Cognitive needs: No Hearing needs: No Vision needs: Yes Review of Systems Const All systems reviewed & are unremarkable except as noted in HPI and below Physical Exam Const General: cooperative, healthy appearing and no acute distress Resp Effort & Inspection: normal respiratory effort and able to speak in complete sentences Cardio Rate: regular rate Peripheral pulses: Peripheral pulses 2+ throughout GI Palpation (GI): Soft to palpation Skin Lesions: no lesions Rashes: no rashes Extrem Other: Left hip: Incision site is clean, dry, and intact. Jerman intact. No surrounding erythema or drainage. No signs of infection. Full ROM. Ambulating with a walker. NVI. Assessment & Plan Assessment & Plan (1) Femoral neck fracture: Comment: Left hip femoral neck closed reduction and percutaneous pinning 09/16/2023 Dr. Kalen Mccloud Code(s): S72.009A - Fracture of unspecified part of neck of unspecified femur, initial encounter for closed fracture Qualifiers: Encounter type: initial encounter Fracture type: closed Laterality: left Qualified Code(s): S72.002A - Fracture of unspecified part of neck of left femur, initial encounter for closed fracture Plan Ms. Castillo is a 73-year-old female who presents in the office today 18 days status post left hip femoral neck closed reduction and percutaneous pinning, which was performed on 09/16/[address] Mccloud. The patient reports she is doing well. She does states she has some discomfort behind her left knee. [place] were removed and steri-stripes were applied. The patient will transition to out patient physical therapy. She would like to attend here at the hospital, therefore, an order was placed today. Follow up will be in [address] Mccloud, or sooner if needed. X-rays of the pelvis which were obtained while in the office today and were reviewed by me, Anaya Will PA-C, revealed orthopedic hardware intact with routine healing. Orders: Orders PT Evaluation and Treatment Today S72.009A - Fracture of unspecified part of neck of unspecified femur, initial encounter for closed fracture XR pelvis 1-2V Today M25.559 - Pain in unspecified hip Patient Instructions: Scribed for Anaya Will PA-C by Crys Rao medical records custodian, on 10/04/2023 at 2:23 pm, EST. Coding Level of Care Code Global (83015) Diagnoses Femoral neck fracture S72.002A Encounter type: initial encounter Fracture type: closed Laterality: left
== END 2023-10-04 15:30 | disposition home or self-care (01) ==
PROVIDERS: Visit Provider Physician Assistant
DX: S72.002A Fracture of unspecified part of neck of left femur, initial encounter for closed fracture (principal)
CPT/HCPCS: 99024

== ENCOUNTER 2023-10-31 12:00 | Outpatient (RCR) | payer MEDICARE, SELFPAY ==
--- NOTE | 2023-10-16 15:10 | MHC.PT.EP ---
[facility] [place] Office [place] Office [place] Office [address] Asad Leroy [address] [phone] F: [phone] F: [phone] F: [phone] F: [phone] Physical Therapy Plan of Care Date of Evaluation: 10/16/23 Date of Surgery: 09/15/23 Diagnosis: L femoral neck fx Assessment: 73 y/o female s/p L hip femoral neck closed reduction and percutaneous pinning on 09/15/23. She had home PT for 4 visits and has just transitioned to single point cane. She feels that she is doing well overall but has difficulty still with don/doffing L shoes/socks, crossing L leg, walking long distances. Examination shows decreased L hip AROM, decreased L hip strength, TTP lateral hip, impaired balance and impaired gait pattern. Recommend PT every other week for 4 visits to address impairments, implement HEP, and optimize functional mobility. Frequency and Duration: The patient will be seen 1x/ every other week for 4 visits (2 months) Short Term Goals: one month Compliant with HEP Pt will be able to perform bridges 10x without HS cramping to facilitate bed mobility (IR 2 bridges before L HS cramps) Retread Builder Goals: two months I with HEP and self management of sx Pt will be able to ambulate > 30 minute with LRAD and pain < 2/10 Pt will be able to don/doff socks on L foot with pain < 2/10 Treatment Plan: Modalities to reduce pain, spasms and effusion. Manual therapy to restore motion and function. Therapeutic exercise to improve strength and flexibility. Neuromuscular re-education for posture and balance. Therapeutic activities to return to functional activities of daily living. Electronically signed by: Yudy Mcguire PT Please sign and return to therapist. Thank you for your referral.
--- NOTE | 2023-11-28 10:11 | MHC.PT.DC ---
[facility] [place] Office [place] Office [place] Office [address] [phone] F: [phone] F: [phone] F: [phone] F: [phone] Physical Therapy Discharge Report Diagnosis: L femoral neck fx Date of Surgery: 09/15/23 Date of Evaluation: 10/16/23 Date of Discharge: 11/28/23 Treatments to Date: 2 Cancellations to Date: 0 No Shows to Date: 0 Discharge Status: Patient Elected to Stop Discharge Summary: Pt called to d/c stating her doctor said she was 'fine' now and no longer needed PT. Electronically signed by: Yudy Mcguire PT Please sign and return to therapist. Thank you for your referral.
== END 2023-11-28 10:14 | disposition home or self-care (01) ==
LOC: HO.PT 12:00
PROVIDERS: PCP Physician Assistant; Visit Provider Physician Assistant
DX: S72.002D Fracture of unspecified part of neck of left femur, subsequent encounter for closed fracture with routine healing (principal)
CPT/HCPCS: 97110; 97162; 97530

== ENCOUNTER 2023-11-01 07:33 | Outpatient (REF) | payer MEDICARE, SELFPAY ==
--- NOTE | ~2023-11-01 | XR_ITS ---
EXAMINATION: XR HIP, LEFT CLINICAL INFORMATION: Left hip pain COMPARISON: 10/04/2023 TECHNIQUE: AP radiograph of the pelvis and frog-lateral view of the left hip. FINDINGS: 3 cannulated screws traverse the left femoral neck fracture which appears to be in stable position and alignment without evidence of hardware failure. No new abnormality. XR/XR hip LT min 2V IMPRESSION: No change in the appearance of the left femoral neck fracture fixation.
== END 2023-11-01 07:34 | disposition home or self-care (01) ==
LOC: HO.HOSX 07:33
PROVIDERS: Visit Provider Orthopaedic Surgery
DX: M25.552 Pain in left hip (principal)
CPT/HCPCS: 73502; 99212

== ENCOUNTER 2023-11-01 11:21 | Outpatient (AMB) | payer MEDICARE, SELFPAY ==
--- NOTE | 2023-11-01 11:23 | MHC.OFFVIS ---
Intake Intake Visit Reasons: PO- LT femut fx IMN 09/15/24 Intake Note: Raven is a 73 year old female who presents for a post operative appointment s/p Left femur IMN 09/15/2023 . Patient reports she is feeling good, physical therapy and her home exercises are going well. She states that certain movements she feels a pulling sensation. She denies any fevers or chills. She continues to walk with a cane when she is out of her home. Allergies amoxicillin [From Augmentin] Allergy (Intermediate, Verified 11/01/23 11:56) Hives clavulanic acid [From Augmentin] Allergy (Intermediate, Verified 11/01/23 11:56) Hives doxycycline Allergy (Intermediate, Verified 11/01/23 11:56) Hives tramadol Allergy (Intermediate, Verified 11/01/23 11:56) Hives Glycerol oma of wood rosin Adverse Reaction (Mild, Uncoded 07/05/23 16:07) Itching hexyl cinnamal Adverse Reaction (Mild, Uncoded 07/05/23 16:07) Itching PFSH Medical History History of breast cancer Essential hypertension Chronic low back pain Surgical History H/O laminectomy H/O lumpectomy History of surgery on lower extremity Family History Mother Breast cancer Father CHF (congestive heart failure) Social History Household Members: Other Housing: Apartment Do you presently have visiting nurse or other home services: No Patient Tobacco Use Status: Never used Tobacco service: No Current occupational status: retired Cognitive needs: No Hearing needs: No Vision needs: Yes Physical Exam Extrem Other: Physical examination of the patient's left hip shows that the surgical incision is well healed, minimal discomfort with range of motion, no crepitus with range of motion Results Reviewed Results Reviewed: X-rays of the patient's left hip show bony trabecular crossing the femoral neck fracture site, 3 screws within the proximal femur with no signs of loosening, no acute bony abnormalities Assessment & Plan Assessment & Plan (1) Left hip pain: Code(s): M25.552 - Pain in left hip Plan Ms. Castillo continues to do well after undergoing closed reduction and percutaneous pinning of her left hip femoral neck fracture on 09/16/2023. She will continue with her activities as tolerated. She will contact me prior to her follow-up appointment in 2 months should any questions or concerns arise. Orders: Orders XR hip LT min 2V Today M25.552 - Pain in left hip Coding Level of Care Code Global (12583) Diagnoses Left hip pain M25.552
== END 2023-11-01 12:07 | disposition home or self-care (01) ==
PROVIDERS: Visit Provider Orthopaedic Surgery
DX: M25.552 Pain in left hip (principal)
CPT/HCPCS: 99024

== ENCOUNTER 2024-01-08 13:38 | Outpatient (AMB) | payer MEDICARE, SELFPAY ==
--- NOTE | 2024-01-08 13:41 | A.OFFVIS_ITS ---
Intake Vital Signs 01/08/24 13:48 01/08/24 14:00 Height 5 ft 4 in Weight 107 lb BMI 18.4 BP 150/80 H 130/80 Blood Pressure Location Lt brachial Lt brachial Position Sitting Sitting Pulse 90 Pulse Source Pulse Oximeter Pulse Oximetry (%) 97 Oxygen Delivery Method Room Air Intake Visit Reasons: AWV Intake Note: Patient is here for an Annual Wellness Visit. Drawer In Hand Required: No Dynamite Packing Machine Operator: Dynamite Packing Machine Operator offered & declined Accompanied by: Self / Same As Patient Allergies amoxicillin [From Augmentin] Allergy (Intermediate, Verified 01/08/24 14:46) Hives clavulanic acid [From Augmentin] Allergy (Intermediate, Verified 01/08/24 14:46) Hives doxycycline Allergy (Intermediate, Verified 01/08/24 14:46) Hives tramadol Allergy (Intermediate, Verified 01/08/24 14:46) Hives Glycerol oma of wood rosin Adverse Reaction (Mild, Uncoded 01/08/24 14:46) Itching hexyl cinnamal Adverse Reaction (Mild, Uncoded 01/08/24 14:46) Itching Medication List - Last Reconciled 01/08/24 by Ethan Jaquez MD blood pressure monitor As directed losartan 100 mg PO DAILY valacyclovir 1,000 mg PO BID PRN walker As directed walker Folding front wheeled walker HPI AWV HPI Details 73-year-old female presents to the [facility] requesting an annual wellness visit. In addition, patient is requesting a refill on some of her chronic medications. [facility] Medical History (Updated 01/08/24 @ 14:48 by Ethan Jaquez MD) History of breast cancer Essential hypertension Chronic low back pain Surgical History H/O laminectomy H/O lumpectomy History of surgery on lower extremity Family History Mother Breast cancer Father CHF (congestive heart failure) Social History Household Members: Other Housing: Apartment Do you presently have visiting nurse or other home services: No Alcohol intake: current Alcohol intake frequency: does not drink Patient Tobacco Use Status: Never used Tobacco service: No Current occupational status: retired Cognitive needs: No Hearing needs: No Vision needs: Yes Questionnaire Medicare Wellness Checkup [age] What gender do you identify with?: female During the past 4 weeks, how much have you been bothered by emotional problems such as feeling anxious, depressed, irritable, sad or downhearted, and blue?: not at all During the past 4 weeks, has your physical & emotional health limited your social activities with family, friends, neighbors, or groups?: slightly During the past 4 weeks, how much bodily pain have you generally had?: very mild pain During the past 4 weeks, was someone available to help you if you needed & wanted help?: no, not at all During the past 4 weeks, what was the hardest physical activity you could do for at least 2 minutes?: moderate Can you get to places out of walking distance without help? (For eg., can you travel alone on buses, taxis or drive your car?): Yes Can you go shopping for groceries or clothes without someone's help?: Yes Can you prepare your own meals?: Yes Can you do your housework without help?: Yes Because of any health problems, do you need the help of another person with your personal care needs such as eating, bathing, dressing or getting around the house?: No Can you handle your own money without help?: Yes During the past 4 weeks, how would you rate your health in general?: very good During the past 4 weeks how have things been going for you?: pretty well Are you having difficulties driving your car?: no Do you always fasten your seat belt when you are in a car?: yes, usually During past 4 weeks, have you been bothered by the following: never: Falling or dizzy when standing up, Sexual problems?, Trouble eating well?, Teeth or denture problems?, Problems using the telephone? and Tiredness or fatigue? Have you fallen 2 or more times in the past year?: No Are you afraid of falling?: No Are you a smoker?: no During the past 4 weeks, how many drinks of wine, beer, or other alcoholic beverages did you have?: no alcohol at all Do you exercise for about 20 minutes 3 or more times a week?: yes, most of the time Have you been given information to help with the following?: yes: Hazards in your house that might hurt you? and yes: Keeping track of your medications? How often do you have trouble taking medicines the way you have been told to take them?: I always take medicine as prescribed How confident are you that you can control & manage most of your health problems?: very confident What is your race?: or [place] Mini Mental State Exam (MMSE) Orientation What is the (year) (season) (date) (day) (month)?: year, season and date Registration Name of 3 unrelated objects clearly and slowly, then ask patient to repeat all 3 of them. (1st repeat determines score. Make sure they can repeat all three): object 1, object 2 and object 3 Score Score: 6 Activity of Daily Living Bathing - sponge bath, tub bath or shower: receives no assistance (gets in/out by self, if usual bathing means Dressing - getting clothes from closets & drawers, including inner/outer garments & fasteners.: gets clothes & gets completely dressed without help Transfer: moves in & out of bed and chair without help (may use support object) Continence: controls urination/bowel movements completely by self Feeding: feeds self without help Total Score: 0 Information obtained from: patient Using telephone: independent Traveling: independent Shopping: independent Preparing meals: independent Housework: independent Taking medicine: independent Managing money: independent PHQ-9 Over the last 2 weeks, how often have you been bothered by any of the following problems? 1. Little interest or pleasure in doing things: not at all 2. Feeling down, depressed, or hopeless: not at all 3. Trouble falling or staying asleep, or sleeping too much: not at all 4. Feeling tired or having little energy: not at all 5. Poor appetite or overeating: not at all 6. Feeling bad about yourself - or that you are a failure or have let yourself or your family down: not at all 7. Trouble concentrating on things, such as reading the newspaper or watching television: not at all 8. Moving or speaking so slowly that other people could have noticed. Or the opposite - being so fidgety or restless that you have been moving around a lot more than usual: not at all 9. Thoughts that you would be better off or of hurting yourself in some way: not at all Total score: 0 Depression Screening Interpretation: Negative Depression Screening Done: Yes Source: Developed by Drs. Ildefonso Vazquez, Diya Berg, Emeka Galvan and colleagues, with an educational ida from [employer]. Thrive Questionnaire Date Thrive assessed: 01/08/24 I am a: Patient What is your living situation today?: I have a steady place to live Within the past 12 months, did the food you bought not last and you didn't have the money to get more?: Never true Within the past 12 months, did you worry whether your food would run out before you got money to buy more?: Never true Do you have trouble paying for medicines?: No Do you have trouble getting transportation to medical appointments?: No Do you have trouble paying your heating and electricity bill?: No Do you have trouble taking care of your child, family member or friend?: No Do you have trouble with day-to-day activities such as bathing, preparing meals, shopping, managing finances, etc.?: No Are you currently unemployed and looking for a job?: No Are you interested in more education?: No Currently or been in a relationship where the following occur: no concerns reported THRIVE Score: 0 DUDLEY-7 AMB Questionnaire DUDLEY-7 Date DUDLEY - 7 assessed: 01/08/24 Feeling nervous, anxious, or on edge: 0 = Not at all Not being able to stop or control worryin = Not at all Worrying too much about different things: 0 = Not at all Trouble relaxin = Not at all Being so restless that it is hard to sit still: 0 = Not at all Becoming easily annoyed or irritable: 0 = Not at all Feeling afraid as if something awful might happen: 0 = Not at all Total DUDLEY-7 score (0-4 normal; 5-9 mild; 10-14 moderate; 15-21 severe): 0 Source: Developed by Drs. Ildefonso Vazquez, Diya Berg, Emeka Galvan and colleagues, with an educational iad from [employer]. AUDIT C Alcohol Use Questionnaire (AUDIT-C) 1. How often do you have a drink containing alcohol?: Never Total Score: 0 Physical Exam Vital Signs: Last Vital Signs Pulse 90 01/08/24 13:48 BP 130/80 01/08/24 14:00 Pulse Ox 97 01/08/24 13:48 Oxygen Delivery Method Room Air 01/08/24 13:48 BMI result Body Mass Index 18.4 Balance: Negative Romberg: Negative Tandem Walk: Able to Walk and Turn: Able to Rise from sit to stand: Able to Hearing Whisper test: Pass Assessment & Plan Assessment & Plan (1) Herpes zoster: Code(s): B02.9 - Zoster without complications Plan: Valtrex prescription sent. Patient is on suppressive therapy. (2) Annual physical exam: Code(s): Z00.00 - Encounter for general adult medical examination without abnormal findings Plan: As above. Quality Reporting (2019) Depression/Bipolar (159/160/161/177) PHQ-9: Total score: 0 Coding Level of Care Code Medicare First (G0438) Diagnoses Herpes zoster B02.9 Annual physical exam Z00.00 CPT Codes Advance Care Planning - Time spent: 1-15 minutes, not on file ([id number]) Advance Care Planning Advance Care Planning discussion: Exists, not on file Date of discussion: 01/08/24 Who was present: Patient Forms completed: Health Care Proxy, MOLST and Comfort care/DNR Time spent: 1-15 minutes, not on file Actual minutes spent: 5
[2024-01-08 13:48] VITALS: BP 150/80; PULSE 90; O2SAT 97; BMI 18.4
[2024-01-08 14:00] VITALS: BP 130/80
== END 2024-01-08 14:45 | disposition home or self-care (01) ==
PROVIDERS: PCP Internal Medicine; Visit Provider Internal Medicine
DX: B02.9 Zoster without complications (principal); Z00.00 Encounter for general adult medical examination without abnormal findings
CPT/HCPCS: 1124F; G0438

== ENCOUNTER 2024-01-31 08:45 | Outpatient (REF) | payer MEDICARE, SELFPAY ==
--- NOTE | ~2024-01-31 | XR_ITS ---
EXAMINATION: XR HIP, LEFT Pelvis: CLINICAL INFORMATION: Pain in left hip COMPARISON: None available. TECHNIQUE: AP the pelvis and lateral view of the left hip FINDINGS: Pelvis and left hip: 3 screws extending through the femoral neck in the area of previously noted femoral neck fracture. Hardware is intact. Alignment unchanged. Minimal cortical step-off unchanged. No arthrosis of the hip joint. Pelvis: there is chondrocalcinosis of the symphysis pubis. Right hip unremarkable. Sacroiliac joints unremarkable. Postoperative changes in the partially visualized lower lumbar sacral spine. XR/XR hip LT min 2V IMPRESSION: PELVIS AND LEFT HIP: No acute abnormality. Postsurgical changes of the left proximal femur unchanged. Chondrocalcinosis of the symphysis pubis.
== END 2024-01-31 08:46 | disposition home or self-care (01) ==
LOC: HO.HOSX 08:45
PROVIDERS: Visit Provider Orthopaedic Surgery
DX: S72.002D Fracture of unspecified part of neck of left femur, subsequent encounter for closed fracture with routine healing (principal)
CPT/HCPCS: 73502; 99212

== ENCOUNTER 2024-01-31 13:59 | Outpatient (AMB) | payer MEDICARE, SELFPAY ==
[2024-01-31 14:18] VITALS: BMI 18.4
--- NOTE | 2024-01-31 14:18 | A.OFFVIS_ITS ---
Vital Signs 01/31/24 14:18 Height 5 ft 4 in Weight 107 lb BMI 18.4 Intake Visit Reasons: OV- LT femut fx IMN 09/15/24 DR-follow up Intake Note: Raven is a 73 year old female who presents for her follow up after her Left femur percutaneous pinning performed on 09/15/2023 DR. Patient reports she is doing well. She gets discomfort in the Left hip when bending low. She is still doing the home exercises. The patient also has intermittent discomfort in her low back. She has had low back surgery in the past. Allergies amoxicillin [From Augmentin] Allergy (Intermediate, Verified 01/31/24 14:22) Hives clavulanic acid [From Augmentin] Allergy (Intermediate, Verified 01/31/24 14:22) Hives doxycycline Allergy (Intermediate, Verified 01/31/24 14:22) Hives tramadol Allergy (Intermediate, Verified 01/31/24 14:22) Hives Glycerol oma of wood rosin Adverse Reaction (Mild, Uncoded 01/31/24 14:22) Itching hexyl cinnamal Adverse Reaction (Mild, Uncoded 01/31/24 14:22) Itching Medication List - Last Reconciled 02/01/24 by Kalen Mccloud MD blood pressure monitor As directed losartan 100 mg PO DAILY valacyclovir 1,000 mg PO BID PRN walker As directed walker Folding front wheeled walker [facility] Medical History History of breast cancer Essential hypertension Chronic low back pain Surgical History H/O laminectomy H/O lumpectomy History of surgery on lower extremity Family History Mother Breast cancer Father CHF (congestive heart failure) Social History Household Members: Other Housing: Apartment Do you presently have visiting nurse or other home services: No Alcohol intake: current Alcohol intake frequency: does not drink Patient Tobacco Use Status: Never used Tobacco service: No Current occupational status: retired Cognitive needs: No Hearing needs: No Vision needs: Yes Physical Exam Vital Signs: BMI result Body Mass Index 18.4 Const Other: Well-nourished well-developed very friendly female awake alert and oriented x3 in no acute distress Extrem Other: Bilateral lower extremity examination shows good capillary refill, no skin lesions noted, normal sensation light touch Left hip examination shows that the surgical incision is well healed, no erythema, minimal discomfort with range of motion, mild tenderness over her bursa, no crepitus with range of motion Results Reviewed Results Reviewed: X-rays of the patient's left hip taken today show 3 cannulated screws in good position with no signs of loosening, bony trabeculae crossing her femoral neck fracture site, no acute bony abnormalities Assessment & Plan Assessment & Plan (1) Left hip pain: Code(s): M25.552 - Pain in left hip Category: Medical Plan Ms. Castillo continues to do very well after undergoing percutaneous pinning of her left hip femoral neck fracture on 09/16/2023. She will continue with her home exercise program. She will follow up with me on an as-needed basis should any questions or concerns arise. Feel free to call me at any time should questions regarding her orthopedic management arise. I spent 22 minutes in reviewing the patient's records and imaging studies, seeing the patient and documenting in the medical record. Orders: Orders XR hip LT min 2V 01/31/24 M25.552 - Pain in left hip Coding Level of Care Code Est Pt Level 3 (74500) Diagnoses Left hip pain M25.552
== END 2024-01-31 14:44 | disposition home or self-care (01) ==
PROVIDERS: PCP Physician Assistant; Visit Provider Orthopaedic Surgery
DX: M25.552 Pain in left hip (principal)
CPT/HCPCS: 99213

== ENCOUNTER 2024-08-05 10:38 | Outpatient (AMB) | payer MEDICARE, SELFPAY ==
--- NOTE | 2024-08-05 10:40 | A.OFFPC_ITS ---
Vital Signs 08/05/24 10:41 Height 5 ft 4 in Weight 113 lb 0.8 oz BMI 19.4 BP 150/90 H Blood Pressure Location Lt brachial Position Sitting Pulse 99 Pulse Source Pulse Oximeter Pulse Oximetry (%) 97 Oxygen Delivery Method Room Air Intake Visit Reasons: 6 month f/u [address] Usher Required: No Allergies amoxicillin [From Augmentin] Allergy (Intermediate, Verified 08/05/24 10:46) Hives clavulanic acid [From Augmentin] Allergy (Intermediate, Verified 08/05/24 10:46) Hives doxycycline Allergy (Intermediate, Verified 08/05/24 10:46) Hives tramadol Allergy (Intermediate, Verified 08/05/24 10:46) Hives Glycerol oma of wood rosin Adverse Reaction (Mild, Uncoded 08/05/24 10:46) Itching hexyl cinnamal Adverse Reaction (Mild, Uncoded 08/05/24 10:46) Itching Tobacco use date assessed: 08/05/24 Fall risk assessment: No Falls in past year Last assessed Fall Risk: 08/05/24 Dental Screening Dental Screen Date: 08/05/24 HPI 6 month f/u HPI Details The patient is a 74 year old female presenting with a sinus infection. She reports a chronic history of sinus infections characterized by thick, nasal discharge. She has had prior sinus infections throughout her life, often associated with having her tonsils and adenoids. The current episode has been persisting for an extended period with described nasal discharge that is thick and difficult to expel. The patient also has a history of deviated septum which may contribute to the recurrent nature of her sinus infections. She is seeking a prescription for a Z-vanda or amoxicillin to treat this infection. The patient also reports a history of essential hypertension, currently managed with losartan, with issues concerning blood pressure management today. She noted her blood pressure was elevated during today's visit, which she attributes to the stress experienced earlier. The patient mentions she previously stopped hydrochlorothiazide following a hip fracture event, as was recommended by a doctor during her hospital stay. She expresses willingness to restart this medication. Additionally, the patient has a history of a hip fracture for which she underwent surgery. She notes that the hip fracture has limited her physical activities. [facility] Medical History History of breast cancer Essential hypertension Chronic low back pain Surgical History H/O laminectomy H/O lumpectomy History of surgery on lower extremity Family History Mother Breast cancer Father CHF (congestive heart failure) Social History Household Members: Other Housing: Apartment Do you presently have visiting nurse or other home services: No Alcohol intake: current Alcohol intake frequency: does not drink Patient Tobacco Use Status: Never used Tobacco service: No Current occupational status: retired Cognitive needs: No Hearing needs: No Vision needs: Yes Questionnaire PHQ-9 Over the last 2 weeks, how often have you been bothered by any of the following problems? 1. Little interest or pleasure in doing things: not at all 2. Feeling down, depressed, or hopeless: not at all 3. Trouble falling or staying asleep, or sleeping too much: not at all 4. Feeling tired or having little energy: not at all 5. Poor appetite or overeating: not at all 6. Feeling bad about yourself - or that you are a failure or have let yourself or your family down: not at all 7. Trouble concentrating on things, such as reading the newspaper or watching television: not at all 8. Moving or speaking so slowly that other people could have noticed. Or the opposite - being so fidgety or restless that you have been moving around a lot more than usual: not at all 9. Thoughts that you would be better off or of hurting yourself in some way: not at all Total score: 0 Depression Screening Interpretation: Negative Depression Screening Done: Yes Source: Developed by Drs. Ildefonso Vazquez, Diya Berg, Emeka Galvan and colleagues, with an educational ida from [email or web address]. Thrive Questionnaire Date Thrive assessed: 01/08/24 AUDIT C Alcohol Use Questionnaire (AUDIT-C) 1. How often do you have a drink containing alcohol?: Never 3. How often do you have six or more drinks on one occasion?: Never Total Score: 0 DUDLEY-7 AMB Questionnaire DUDLEY-7 Date DUDLEY - 7 assessed: 01/08/24 Source: Developed by Drs. Ildefonso Vazquez, Diya Berg, Emeka Galvan and colleagues, with an educational ida from [email or web address]. Physical exam (Primary Care) Vital Signs: Last Vital Signs Pulse 99 08/05/24 10:41 BP 150/90 H 08/05/24 10:41 Pulse Ox 97 08/05/24 10:41 Oxygen Delivery Method Room Air 08/05/24 10:41 BMI result Body Mass Index 19.4 Tobacco/Smoking Status: Tobacco use Status Tobacco use date assessed 08/05/24 08/05/24 10:41 Patient Tobacco Use Status Never used Tobacco 08/05/24 10:41 PHQ-9: PHQ-9 Score PHQ-9: Total score 0 08/05/24 10:53 Depression Screening Interpretation: Negative Thrive Assessment: Date of Thrive Assessment Date Thrive assessed 01/08/24 08/05/24 10:41 Const General: cooperative and healthy appearing Nutritional Appearance: well nourished Orientation/consciousness: patient oriented x3 Limitations: no limitations HENMT Head: Yes normal to inspection Eyes General: appearance normal, both eyes and all related structures Neck Neck: Yes normal visual inspection Chest Chest palpation & inspection: normal palpation of entire chest wall Resp Effort & Inspection: normal respiratory effort Neuro General: patient oriented x3 Coding Level of Care Code Est Pt Level 4 (91735) Complex EM visit Add On G2211 Diagnoses Essential hypertension I10 History of shingles Z86.19 Femoral neck fracture S72.002A Encounter type: initial encounter Fracture type: closed Laterality: left Assessment & Plan Assessment & Plan (1) Essential hypertension: Code(s): I10 - Essential (primary) hypertension Category: Medical Plan: Hydrochlorothiazide 12.5 mg once a day. This has been added to the regimen. Continue the losartan. (2) History of shingles: Code(s): Z86.19 - Personal history of other infectious and parasitic diseases Category: Medical Plan: Acyclovir has been added to the regimen. (3) Femoral neck fracture: Comment: Left hip femoral neck closed reduction and percutaneous pinning 09/16/2023 Dr. Kalen Mccloud Code(s): S72.009A - Fracture of unspecified part of neck of unspecified femur, initial encounter for closed fracture Category: Medical Qualifiers: Encounter type: initial encounter Fracture type: closed Laterality: left Qualified Code(s): S72.002A - Fracture of unspecified part of neck of left femur, initial encounter for closed fracture Plan: Condition is stable. Orders: Orders Liver Panel Today I10 - Essential (primary) hypertension Lipid Panel Today I10 - Essential (primary) hypertension Thyroid Stimulating Hormone Today I10 - Essential (primary) hypertension Basic Metabolic Panel Today I10 - Essential (primary) hypertension Complete Blood Count no Diff Today I10 - Essential (primary) hypertension UA and rflx microscopic Today I10 - Essential (primary) hypertension Medications: New azithromycin take 500 mg today (day 1), then 250 mg for 4 days (days 2-5) PO 6 tabs 0RF hydrochlorothiazide 12.5 mg PO DAILY 90 tabs 1RF Refilled losartan 100 mg PO DAILY 90 tabs 1RF valacyclovir for shingles break out 1,000 mg PO BID PRN 60 tabs 0RF shingles
[2024-08-05 10:41] VITALS: BP 150/90; PULSE 99; O2SAT 97; BMI 19.4
== END 2024-08-05 11:24 | disposition home or self-care (01) ==
PROVIDERS: PCP Internal Medicine; Visit Provider Internal Medicine
DX: I10 Essential (primary) hypertension (principal); Z86.19 Personal history of other infectious and parasitic diseases; S72.002A Fracture of unspecified part of neck of left femur, initial encounter for closed fracture

== ENCOUNTER 2024-08-05 10:38 | Outpatient (REF) | payer MEDICARE, SELFPAY ==
[2024-08-05 12:23] LABS: Appearance Urine Clear; Color Urine Yellow; Glucose Urine UA Negative (Negative); Leukocyte Esterase Urine Negative (Negative); Nitrite Urine Negative (Negative); PH 5.5 (5.0-9.0); Specific Gravity - Urine 1.015 (1.005-1.025); Urine Blood Negative (Negative); Urine Ketones Negative (Negative); Urine Protein Negative (Neg-Trace)
[2024-08-05 12:51] LABS: Alanine Aminotransferase 31 U/L (0-31); Albumin Level 4.5 g/dL (3.5-5.0); Alkaline Phosphatase 104 U/L (39-117); Anion Gap 10 (12-20); Aspartate Amino Transferase 34 U/L (5-31); Bilirubin Direct 0.2 mg/dL (0.0-0.5); Bilirubin Total 0.7 mg/dL (0.0-1.0); Blood Urea Nitrogen 8 mg/dL (9-16); Calcium 9.9 mg/dL (8.4-10.2); Carbon Dioxide 27 mmol/L (22-29); Chloride 98 mmol/L (96-108); Cholesterol 226 mg/dL (<200); Estimated Glomerular Filt Rate > 60; Glucose Random 101 mg/dL (60-115); HDL Cholesterol 79 mg/dL (>40); LDL Cholesterol Calculated 136 mg/dL (<100); Potassium 4.7 mmol/L (3.3-5.1); Sodium 130 mmol/L (135-145); Total Protein 7.8 g/dL (6.5-8.0); Triglycerides 58 mg/dL (<150)
[2024-08-05 13:07] LABS: Thyroid Stimulating Hormone 1.04 uIU/mL (0.32-4.0)
[2024-08-05 18:25] LABS: Hematocrit 41.6 % (37.0-47.0); Hemoglobin 14.4 g/dl (12.0-16.0); Mean Corpuscular HGB Conc 34.6 g/dl (31.0-35.0); Mean Corpuscular Hemoglobin 30.3 pg (27.0-33.0); Mean Corpuscular Volume 87.6 fL (80.0-98.0); Mean Platelet Volume 9.8 fL (9.4-12.3); Platelet Count 247 X10*3/uL (160-400); Red Blood Count 4.75 X10*6/uL (4.20-5.50); Red Cell Distribution Width 12.8 % (11.0-16.0); White Blood Count 5.7 X10*3/uL (4.8-10.8)
== END 2024-08-05 10:39 | disposition home or self-care (01) ==
LOC: HO.LAB 10:38
PROVIDERS: PCP Internal Medicine; Visit Provider Internal Medicine
DX: I10 Essential (primary) hypertension (principal); Z86.19 Personal history of other infectious and parasitic diseases; S72.002A Fracture of unspecified part of neck of left femur, initial encounter for closed fracture; Z79.899 Other long term (current) drug therapy
CPT/HCPCS: 36415; 80048; 80061; 80076; 81003; 84443; 85027; 99212

== ENCOUNTER 2024-09-15 11:42 | Outpatient (REF) | payer MEDICARE, SELFPAY | END 2024-09-15 11:43 | disposition home or self-care (01) | LOC: HO.MAMMO 11:42 | PROVIDERS: PCP Internal Medicine; Visit Provider Internal Medicine | DX: Z12.31 Encounter for screening mammogram for malignant neoplasm of breast (principal) | CPT/HCPCS: 77063; 77067 ==

== ENCOUNTER → 2024-09-15 12:00 | Outpatient (BNV) | payer MEDICARE, SELFPAY | PROVIDERS: PCP Internal Medicine; Visit Provider Internal Medicine | DX: Z12.31 Encounter for screening mammogram for malignant neoplasm of breast (principal) | CPT/HCPCS: 77063; 77067 ==

== ENCOUNTER 2025-01-15 14:21 | Outpatient (AMB) | payer MEDICARE, SELFPAY ==
--- NOTE | 2025-01-15 14:49 | AM.OFFVISMDC ---
Intake Vital Signs 01/15/25 14:51 Height 5 ft 4 in Weight 113 lb 4 oz BMI 19.4 BP 120/68 Blood Pressure Location Lt brachial Position Sitting Pulse 84 Pulse Source Pulse Oximeter Temp 97.3 F Temp Source Temporal Artery Scan Pulse Oximetry (%) 99 Oxygen Delivery Method Room Air Intake Visit Reasons: AWV Intake Note: Patient is here for an Annual Wellness Visit. Library Circulation Technician Required: No Assistant Mechanic: Assistant Mechanic offered & declined Accompanied by: Self / Same As Patient Allergies amoxicillin [From Augmentin] Allergy (Intermediate, Verified 01/15/25 15:25) Hives clavulanic acid [From Augmentin] Allergy (Intermediate, Verified 01/15/25 15:25) Hives doxycycline Allergy (Intermediate, Verified 01/15/25 15:25) Hives tramadol Allergy (Intermediate, Verified 01/15/25 15:25) Hives Glycerol oma of wood rosin Adverse Reaction (Mild, Uncoded 01/15/25 15:25) Itching hexyl cinnamal Adverse Reaction (Mild, Uncoded 01/15/25 15:25) Itching Medication List - Last Reconciled 01/15/25 by Neva Foley PA-C blood pressure monitor As directed hydrochlorothiazide 12.5 mg PO DAILY losartan 100 mg PO DAILY valacyclovir 1,000 mg PO BID PRN walker As directed walker Folding front wheeled walker HPI HPI Comments History of Present Illness Details Patient is here for an Annual Wellness Visit today. The patient is a 74-year-old female presenting for an annual wellness visit. She has a history of essential hypertension, which is controlled with Losartan and Hydrochlorothiazide, for which she requested prescription refills. Her medical history also includes a history of breast cancer, hyponatremia, elevated fasting glucose, low vitamin D, chronic low back pain, shingles, and a hip fracture sustained due to a tripping incident in her home. The patient uses a cane for assistance with balance, particularly in uneven or unpredictable environments. She actively maintains her health through regular dental care visits and cognitive exercises, and by managing her own household duties, finances, and personal care without external assistance. She reported no depressive symptoms but expressed night blindness, preventing her from driving after dark. The patient remains physically active with occasional exercise routines and walks whenever possible, adjusting her activities to accommodate arthritic discomfort and the cold, which aggravates her pain. Cognition appears preserved as she successfully completed cognitive tasks during the visit. She has a DNR on file and designates her sister as her healthcare proxy. Social History - Engages in exercise as best as possible, adjusting according to arthritic pain and weather conditions. - Manages her household independently, including finances, groceries, cleaning, and personal care. - Utilizes a cane for balance in potentially hazardous environments. - Does not drive at night due to night blindness. - Attends dental visits three times a year, maximizing insurance coverage. - No reports of substance use. List of all patient's Health Care Provider's PCP- Dr. Jaquez Reviewed past medical history- yes Reviewed surgical / hospitalization history- yes Reviewed family history- yes Reviewed current medications- yes Review all current providers patient is actively being followed by- yes Risk Factors Do exercise? as best as I can per pt How many days per week? 3-5 days out of the week Minutes per episode question? 20 minutes Do quinones regularly? yes Do go to the dentist yearly? yes three times a day or every 6 months? see above Do use a seatbelt in the vehicle? yes Home safety Throw rugs? none Grab bars? yes for shower, not for the toilet Raised toilet seat? yes Working smoke detectors? yes Activities of daily living Do you have urinary incontinence? no Difficulty bathing or showering? no ?Difficulty dressing??no ?Difficulty grooming? no ?Difficulty feeding myself? no ?Difficulty using the toilet??no ?Difficulty getting in and out of bed? no? ?Difficulty walking? no ?Receives help from other person's with any of the above tasks??none and not interested at this time Instrumental activities of daily living Uses telephone -?yes ?Gets to place out of walking distance- yes ?Who does the Food preparation??yes ?Who goes shopping for groceries? yes ?Can perform minor home maintenance-?yes ?Can perform own laundry-?yes ?Can perform own housework-yes ?Manages own money/Finances-?yes ?Transportation??yes pt drives ?Do you Drive??yes ?Do you Drive at Night? no due to night blindness ?Can you Manage own medications? yes If you can not manage your own medications, who does manage your medications?? Fall risk assessment Fall risk? no Have you had any falls with injuries in the past year? none Have you had 2 or more falls in the past year? none Fall risk assessment: 0 no fall risk Visit History Last hospitalization: If any? none recently Additonal Services needed/Case Management Referrals? Social? no Financial? no Medical referrals? no Education? Asthma? no COPD? no Diabetes? no Medication management? no Cognitive Exam 1. Repeat Words- I am going to say 3 words that I want to to remember later. - The words are banana, sunrise, chair. Please say them now. (Give the patient 3 tries to repeat the words. You may repeat the words to them for each try. If they are unable to repeat the words back to after 3 times, go directly to the clock drawing) 2. Ask person to draw a clock. - 2 points for a normal clock or 0 points for an abnormal clock drawing - Please draw a clock and a [place]. - Put all the numbers in the [place]. It is acceptable to provide a she of paper with the [place] already drawn for the person) - When #2 is completed, say, Now set the hands to show ten past eleven. 3. Ask person to recall the 3 words - 1 point for each word correctly recalled without prompt - You will be asking to person to recall the set of 3 words he gave them at the beginning of the test. - Say What were the three words I asked you to remember? Recall Score: 0-3 scoring - 1 point for each word correctly recalled without prompt Clock Drawin-2 scoring - 2 points for a normal clock or 0 points for abnormal clock drawing - a normal clock must include all numbers (1-12), each only once, in the correct order and directions (clockwise) - there must also be to hands present, 1 point into the 11 and 1 pointing to 2. Add the 3-item recall ad clock drawing score together. Total Score of 2 indicates higher likelihood of clinical important incontinence impairment referral/follow-up required Total Score of 3-5 indicates lower likelihood of dementia but does not rule out some degree of cognitive impairment Patient's Total Score Today: 5 Cognitive Status is Normal End of life planning Discussed advanced directives- Yes Member did not wish to discuss above? No Advanced directives on file? Patient is a DNR/DNI Discussed wishes expressed in advanced directives? Patient's healthcare proxy is her sister on file Encouraged member to inform others about care preferences. [facility] Medical History (Updated 01/15/25 @ 17:14 by Neva Foley PA-C) Encounter for annual wellness exam in Medicare patient Hammer toe History of breast cancer Essential hypertension Chronic low back pain Surgical History History of hip surgery H/O laminectomy H/O lumpectomy History of surgery on lower extremity Family History Mother Breast cancer Father CHF (congestive heart failure) Social History Household Members: Other Housing: Apartment Do you presently have visiting nurse or other home services: No Alcohol intake: current Alcohol intake frequency: does not drink Patient Tobacco Use Status: Never used Tobacco service: No Current occupational status: retired Cognitive needs: No Hearing needs: No Vision needs: Yes Questionnaire Medicare Wellness Checkup [age] What gender do you identify with?: female During the past 4 weeks, how much have you been bothered by emotional problems such as feeling anxious, depressed, irritable, sad or downhearted, and blue?: not at all During the past 4 weeks, has your physical & emotional health limited your social activities with family, friends, neighbors, or groups?: not at all During the past 4 weeks, how much bodily pain have you generally had?: very mild pain During the past 4 weeks, was someone available to help you if you needed & wanted help?: no, not at all During the past 4 weeks, what was the hardest physical activity you could do for at least 2 minutes?: light Can you get to places out of walking distance without help? (For eg., can you travel alone on buses, taxis or drive your car?): Yes Can you go shopping for groceries or clothes without someone's help?: Yes Can you prepare your own meals?: Yes Can you do your housework without help?: Yes Because of any health problems, do you need the help of another person with your personal care needs such as eating, bathing, dressing or getting around the house?: No Can you handle your own money without help?: Yes During the past 4 weeks, how would you rate your health in general?: excellent During the past 4 weeks how have things been going for you?: pretty well Are you having difficulties driving your car?: no Do you always fasten your seat belt when you are in a car?: yes, usually During past 4 weeks, have you been bothered by the following: never: Falling or dizzy when standing up, Sexual problems?, Trouble eating well?, Teeth or denture problems?, Problems using the telephone? and Tiredness or fatigue? Have you fallen 2 or more times in the past year?: No Are you afraid of falling?: No Are you a smoker?: no During the past 4 weeks, how many drinks of wine, beer, or other alcoholic beverages did you have?: no alcohol at all Do you exercise for about 20 minutes 3 or more times a week?: yes, most of the time Have you been given information to help with the following?: yes: Hazards in your house that might hurt you? and no: Keeping track of your medications? How often do you have trouble taking medicines the way you have been told to take them?: I always take medicine as prescribed How confident are you that you can control & manage most of your health problems?: very confident What is your race?: White Mini Mental State Exam (MMSE) Orientation What is the (year) (season) (date) (day) (month)?: year, season, date, day and month Where are we (state) (county) (town or city) (hospital) (floor)?: state, county, town or city, hospital/clinic and floor Registration Name of 3 unrelated objects clearly and slowly, then ask patient to repeat all 3 of them. (1st repeat determines score. Make sure they can repeat all three): object 1, object 2 and object 3 Attention & Calculation (CHOOSE ONE) Ask pt to begin with 100 & count backward by 7. Stop after 5 repeats. If pt cannot ask them to spell the word WORLD backward.: 93, 86, 79, 72 and 65 Spell WORLD backwards (DLROW): 5 letters Recall Ask patient to repeat the 3 items from question #3.: object 1, object 2 and object 3 Language Show patient a wristwatch & ask what it is. Repeat for pencil.: watch and pencil Ask the patient to repeat the phrase 'No ifs, ands, or buts' after you.: correct Ask the patient to 'take a piece of paper with their right hand' 'fold paper in half' 'place paper on floor': take paper in right hand, fold paper in half and place paper on floor Print the sentence 'CLOSE YOUR EYES' on a piece. If patient actually closes eyes then score.: followed written direction Give patient a blank piece of paper & ask to write a sentence. Score if it contains a noun & verb.: sentence contains subject and verb Ask patient to copy figure of intersecting pentagons exactly. Score if all 10 angles & 2 intersects are included.: all 10 angles present & 2 are intersected Score Score: 35 Activity of Daily Living Bathing - sponge bath, tub bath or shower: receives no assistance (gets in/out by self, if usual bathing means Dressing - getting clothes from closets & drawers, including inner/outer garments & fasteners.: gets clothes & gets completely dressed without help Toileting - going to the 'toilet room' for urine/bowel elimination & cleaning self/arranging clothes: goes to toilet room, cleans self, arranges clothes without help Transfer: moves in & out of bed and chair without help (may use support object) Continence: controls urination/bowel movements completely by self Feeding: feeds self without help Total Score: 0 Information obtained from: patient Using telephone: independent Traveling: independent Shopping: independent Preparing meals: independent Housework: independent Taking medicine: independent Managing money: independent PHQ-9 Over the last 2 weeks, how often have you been bothered by any of the following problems? 1. Little interest or pleasure in doing things: not at all 2. Feeling down, depressed, or hopeless: not at all 3. Trouble falling or staying asleep, or sleeping too much: not at all 4. Feeling tired or having little energy: not at all 5. Poor appetite or overeating: not at all 6. Feeling bad about yourself - or that you are a failure or have let yourself or your family down: not at all 7. Trouble concentrating on things, such as reading the newspaper or watching television: not at all 8. Moving or speaking so slowly that other people could have noticed. Or the opposite - being so fidgety or restless that you have been moving around a lot more than usual: not at all 9. Thoughts that you would be better off or of hurting yourself in some way: not at all Total score: 0 Depression Screening Interpretation: Negative Depression Screening Done: Yes [id number] - PHQ-9 Billing: Yes Source: Developed by Drs. Ildefonso Vazquez, Diya Berg, Emeka Galvan and colleagues, with an educational ida from [employer]. Thrive Questionnaire Date Thrive assessed: 01/15/25 I am a: Patient What is your living situation today?: I have a steady place to live Within the past 12 months, did the food you bought not last and you didn't have the money to get more?: Never true Within the past 12 months, did you worry whether your food would run out before you got money to buy more?: Never true Do you have trouble paying for medicines?: No Do you have trouble getting transportation to medical appointments?: No Do you have trouble paying your heating and electricity bill?: No Do you have trouble taking care of your child, family member or friend?: No Do you have trouble with day-to-day activities such as bathing, preparing meals, shopping, managing finances, etc.?: No Are you currently unemployed and looking for a job?: No Are you interested in more education?: No Please select the resources that you would like help with: None Currently or been in a relationship where the following occur: No concerns reported THRIVE Score: 0 DUDLEY-7 AMB Questionnaire DUDLEY-7 Date DUDLEY - 7 assessed: 01/15/25 Feeling nervous, anxious, or on edge: 0 = Not at all Not being able to stop or control worryin = Not at all Worrying too much about different things: 0 = Not at all Trouble relaxin = Not at all Being so restless that it is hard to sit still: 0 = Not at all Becoming easily annoyed or irritable: 0 = Not at all Feeling afraid as if something awful might happen: 0 = Not at all Total DUDLEY-7 score (0-4 normal; 5-9 mild; 10-14 moderate; 15-21 severe): 0 Source: Developed by Diya Irene, Emeka Galvan and colleagues, with an educational ida from [employer]. DUDLEY-7 Assessment Billing DUDLEY-7 Assessment Tool: DUDLEY-7 Assessment 48344 AUDIT C Alcohol Use Questionnaire (AUDIT-C) 1. How often do you have a drink containing alcohol?: Never 3. How often do you have six or more drinks on one occasion?: Never Total Score: 0 Score Reviewed/Action Taken: Yes Review of Systems Const Details: - Musculoskeletal: Reports chronic low back pain, arthritis exacerbated by cold weather. - Neurological: Denies depression, reports cognitive exercises regular use. - Ophthalmologic: Reports night blindness. - Genitourinary: Denies urinary incontinence. - Cardiovascular: Denies recent episodes of dizziness or fainting. - General Health: Denies recent hospitalizations. All systems reviewed & are unremarkable except as noted in HPI and below Physical Exam Vital Signs: Last Vital Signs Temp 97.3 F 01/15/25 14:51 Pulse 84 01/15/25 14:51 BP 120/68 01/15/25 14:51 Pulse Ox 99 01/15/25 14:51 Oxygen Delivery Method Room Air 01/15/25 14:51 BMI result Body Mass Index 19.4 Const Other: Appearance: Alert. Oriented X3. No acute distress. Head: Normal external exam. Normocephalic. Atraumatic. Eyes: Pupils are equal, round, and reactive to light. Extraocular movements intact. Conjunctiva and sclera normal. Eyelids normal. Ears: External auditory canal normal. Tympanic membranes normal. Throat: Pharynx normal. Uvula midline. Moist mucous membranes. Neck: Normal inspection. Neck supple. Full range of motion. No adenopathy. Thyroid Normal. No meningeal signs. No neck mass noted. Cardiovascular: Normal heart rate and rhythm. Heart sound normal. No murmurs noted. Pulses normal throughout. Respiratory: No respiratory distress. Painless inspiration. Breath sounds normal. No wheezes/rales/rhonchi noted. Chest nontender. No accessory muscle usage noted or decreased air movement noted. Abdomen: Soft and nontender. Bowel sounds normal in all 4 quadrants. No distention noted. No organomegaly noted. No visible injury noted. Back: No costovertebral angle tenderness. Full range of motion noted. Skin: Skin warm and dry. Normal skin color. Normal skin turgor. No rashes/lesions/lacerations noted. Extremities: No lower extremity edema. Extremities exhibit normal range of motion. Extremities nontender. Neuro: Oriented X 3. No motor deficit. No sensory deficit. Reflexes normal. Uses a cane for stability when walking. General: cooperative, healthy appearing, comfortable, no acute distress, well developed, alert, awake and Physically active Nutritional Appearance: average body habitus Orientation/consciousness: oriented to person, oriented to place, oriented to time and patient oriented x3 Limitations: ambulation with cane HEENT Other: Hearing screening Whisper test- normal/passed test Head: Yes normal to inspection Ears: hearing grossly normal bilaterally General nose exam: Normal external nose present Face and sinus: Yes normal facial exam Mouth: Normal oral and palatal mucosa present Teeth and gingiva: dentition normal and gingiva normal Throat: Yes posterior oropharynx normal Eyes Other: vision screening- normal General: appearance normal, both eyes and all related structures Visual Bolton: normal visual bolton by confrontation Alignment and Position: alignment normal Periorbital: periorbital findings normal Eyelids: Yes eyelids normal Conjunctivae: conjunctivae normal Sclerae: sclerae normal Corneas: corneas normal Pupils: Equal, round and reactive pupils present EOM: EOMs intact bilaterally Direct Ophthalmoscopy: normal light reflex Other: urinary incontinence? no Neuro Other: balance- normal balance Romberg- negative Romberg tandem walk test- normal tandem walk test walk-in turned test- normal walk and turn test rise from sit to stand- normal rise from [id number] test from a chair without using arms General: oriented to person, oriented to place, oriented to time and patient oriented x3 Cranial nerves: Yes Equal, round and reactive pupils present Assessment & Plan Assessment & Plan (1) Encounter for annual wellness exam in Medicare patient: Code(s): Z00.00 - Encounter for general adult medical examination without abnormal findings Plan: Normal annual wellness exam today. (2) Essential hypertension: Code(s): I10 - Essential (primary) hypertension Plan: Refill of Losartan and Hydrochlorothiazide advised, with regular monitoring. Condition is chronic and stable will continue to monitor. (3) History of breast cancer: Code(s): Z85.3 - Personal history of malignant neoplasm of breast Plan: Continue routine monitoring, with no active treatment required. Condition is stable will continue to monitor. Plan Plan Patient was informed and verbally consented to the use of an ambient scribe for clinic note documentation during this visit. 1. Essential Hypertension Refill of Losartan and Hydrochlorothiazide advised, with regular monitoring. 2. History Of Breast Cancer Continue routine monitoring, with no active treatment required. 3. Hip Fracture History No further action required; patient ambulatory with cane assistance. 4. Hyponatremia Continue monitoring through lab work and encourage hydration. 5. Elevated Fasting Glucose Advise periodic glucose monitoring and lifestyle modification. 6. Low Vitamin D Reinforce vitamin D supplementation. 7. Chronic Low Back Pain Physical exercise recommended, and medication advised for pain relief as necessary. 8. Herpes Zoster Shingles Monitor for recurrent symptoms. During today's wellness visit, I discussed the patient?s chronic conditions, including essential hypertension and her need to continue current antihypertensive therapy. The patient was advised to monitor her blood pressure regularly. Discussed the importance of regular check-ups for her history of breast cancer despite no active symptoms. We explored her hip fracture history, which does not currently impact her ambulatory capability, other than the use of a cane for safety in uneven surfaces. We reviewed her medical history including hyponatremia, elevated fasting glucose, low vitamin D, chronic back pain, and shingles, stressing the importance of managing these conditions through lifestyle modifications, periodic lab work, and medication as needed. I answered the inquiries on her cognitive function and her comfort in everyday activities confirming no major deficits. Orders: Referrals Podiatry Referral M20.40 - Other hammer toe(s) (acquired), unspecified foot Medications: Refilled losartan 100 mg PO DAILY 90 tabs 1RF hydrochlorothiazide 12.5 mg PO DAILY 90 tabs 1RF Patient Instructions: - Continue taking Losartan and Hydrochlorothiazide as prescribed. Refills have been provided. - Monitor blood pressure regularly and report any significant changes or symptoms. - Maintain your exercise routine as tolerated, avoiding exacerbating factors. - Keep up with vitamin D supplementation. - Proceed with dental visits as scheduled and maximize insurance coverage for dental care. - Drive during daylight and avoid night driving. - Contact healthcare provider if new symptoms arise or if your situation worsens. - Schedule your next appointment based on your blood work and healthcare needs in three to six months. Quality Reporting (2019) Depression/Bipolar (159/160/161/177) PHQ-9: Total score: 0 Coding Level of Care Code Medicare Subsequent (G0439) Est Pt Level 4 (60668) Diagnoses Encounter for annual wellness exam in Medicare patient Z00.00 Essential hypertension I10 History of breast cancer Z85.3 CPT Codes Advance Care Planning - Advance Care Planning discussion: On file, no changes ([id number]) Advance Care Planning - Time spent: 1-15 minutes, on File ([id number]) Additional Codes DUDLEY-7 Assessment Billing - DUDLEY-7 Assessment Tool: DUDLEY-7 Assessment 00341 ([id number]) PHQ-9 - 57438 - PHQ-9 Billing: Yes ([id number]) Time Spent (min) 50 Advance Care Planning Advance Care Planning discussion: On file, no changes Forms completed: Health Care Proxy and Comfort care/DNR Time spent: 1-15 minutes, on File Actual minutes spent: 15 Did not discuss due to Cultural/Spiritual beliefs: Yes
[2025-01-15 14:51] VITALS: BP 120/68; PULSE 84; TEMP 36.3; O2SAT 99; BMI 19.4
--- OUTSIDE RECORDS SUMMARY | 2025-01-15 16:29 | XMS_ITS | Patient Health Record ---
Author Organization [facility] Address [address] [place] [address] Care Team Providers Care Perinatology Physician Name Role Phone Venice Chua MD Primary Care Provider Unavail shawn ALENAPAOLA Unavailable [phone] Allergies Allergen (clinical drug ingredient) Drug/Non Drug Allergy documented on EMR Reaction Allergy Type Onset Date Status blue dye 106 & 124 (uncoded) Unknown Allergy Active nickel nickel (uncoded) Unknown Allergy Act joseph Dye PRISON Blue 1 Unknown Drug Allergy Ac tive furosemide Lasix Unknown Drug Allergy Active Mineral Oil Unknown Drug Allergy Activ e Reason For Referral No Information Medications Medication SIG (Take, Route, Frequency, Duration) Notes Start Date End Date Status hydroCHLOROthiazide 25 MG 1 tablet in th e morning Orally Once a day Active Losartan Potassium 100 MG 1 tablet Orally Once a day Active valACYclovir HCl 1 GM 1 tablet Orally On ce a day for 10 day(s) Active Social History Tobacco Use: Social History Observation Description Date Details (start date - stop date) Former Smoker NA - NA Tobacco Use/Smoking Question Answer Notes Current Smoking Status: former smoker How long has it been since you last smoked? > 10 years Alcohol Screen (Audit-C) Question Answer Notes Did you have a drink containing alcohol in the p ast year? Yes Points 0 Interpretation Negative Problems Problem Type SNOMED Code ICD Code Onset Dates Problem Status W/U Status Risk Notes Problem 0118738524119025 Arthritis of right shoulder region (M19.011) Active confirmed Problem 614664158 Dysfunction of right rotator cuff (M67.911) Active confirmed Plan Of Treatment Pending Test Test Name Order Date XR Hip/Pelvis 2-3 v RT Unilat 03/25/2019 Insurance Providers Payer Name Payer Address Payer Phone Subscriber Number Group Number Insured Name Patient Relationship to Insured Coverage Start Date Coverage End Date Medicare [address] [place] [id number] Raven Castillo Self - patient is the insured [employer] [address] [place] [address] [id number] Raven Castillo Self - patient is the insured Medications Administered Medication Instructions Date of Administration Dosage Notes Dexamethasone 03/25/2019 4 mg Medical (General) History Medical History History ICD Code Hypertension Cervical disc disease shingles Right shoulder arthritis with rotator cu ff dysfunction Surgical History Surgery Date(Month/Year) breast lumpectomy 11/2018 endovenous ablation 2019 laminectomy 2019 Hospitalization History Reason Date(Month/Year) see above
--- OUTSIDE RECORDS SUMMARY | 2025-01-15 16:29 | XMS_ITS | Clinical Summary ---
Author Organization [facility] Address [address] [place] [address] Care Team Providers Care Firestopper Installer Name Role Phone Unavailable Primary Care Provider Unavailabl e Source Comments PLEASE NOTE, if this patient is a minor, it may be UNLAWFUL to discuss sensitive information that is contained in these records (such as FAMILY PLANNING, MENTAL HEALTH or SUBSTANCE ABUSE) with the minor patient's parent or other person without the patient's specific authorization.[facility] Allergies Active Allergy Reactions Criticality Noted Date Comments Amlodipine Other (See Comments) 11/10/2016 loopy Atenolol 10/09/2014 FATIGUE EXTREME Blue Dye Hives 09/30/2018 Clonidine 10/09/2014 UNSTEADY GAIT , DIZZINESS Latex Rash 02/16/2016 Lisinopril 10/09/2014 MARINO Mineral Oil Rash Olmesartan 10/09/2014 h Tramadol Rash 04/28/2019 Verapamil 10/09/2014 palpitations Medications valACYclovir (VALTREX) 1 gram tablet 02/08/2018 Active acetaminophen (TYLENOL) 325 mg cap Take by mouth Active losartan (COZAAR) 100 mg tabletIndications :Essential hypertension Take 1 Tab by mouth once daily SOLCO BRAND ONLY 90 Tab 3 06/18/2019 Active hydroCHLOROthiazi de (HYDRODIURIL) 25 mg tabletIndications :Essential hypertension Take 1 Tab by mouth once daily 90 Tab 3 09/01/2019 Active amoxicillin-pot clavulanate (AUGMENTIN) 875-125 mg per tabletIndications :Acute non-recurrent sinusitis, unspecified location Take 1 Tab by mouth 2 (two) times daily 20 Tab 10/15/2019 Active erythromycin (ROMYCIN) 5 mg/gram (0.5 %) ophthalmic ointmentIndicatio ns:Corneal irritation of left eye Place 0.5 Inches into the left eye every 6 (six) hours 3.5 g 10/15/2019 Active Active Problems Problem Noted Date Diagnosed Date Atopic dermatitis 02/25/2018 BMI 21.0-21.9, adult 02/25/2018 Spinal stenosis 09/03/2017 Essential hypertension 11/10/2016 Allergic contact dermatitis due to cosmetics Allergic contact dermatitis due to dyes 10/31/19 17 Allergic contact dermatitis due to metals 2016 Contact hypersensitivity 10/25/2016 Allergic contact dermatitis 09/21/2016 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 Ill-defined disease 05/26/2016 Vitamin D deficiency 04/09/2015 Thyroid nodule 04/09/2015 Osteopenia 04/09/2015 Resolved Problems Problem Noted Date Diagnosed Date Resolved Date essential hypertension 04/09/201511/27 Hypertension 04/13/2014 04/09/2015 Immunizations Immunization Administration Dates Next Due INFLUENZA, SEASONAL, INJECTABLE 05/27/20 18,06/01/2014,10/17/2013,07/18,08/08/2011 Influenza (FLUAD), Trivalent , Adjuvanted 05/27/2018,06/19/2016 Influenza (FLUZONE), high-do se, trivalent, PF 06/09/2017,06/09/2015 PNEUMOCOCCAL POLYSACCHARIDE PPV23 10/17/2013 Td(adult),2 Lf tetanus toxoid,preservative free 03/22/2007 ZOSTER VACCINE, RECOMBINANT (SHINGRIX) 8,11/26/2017 Zoster, Live Vaccine (Zostavax) 03/08/2018,08/25 Family History Medical History Relation Name Comments Heart Problems Father Cancer Mother Relation Name Status Comments Father Mother Sister Alive Social History Tobacco Use Types Packs/Day Years Used Date Smoking Tobacco: Former Cigarettes S tarted: 10/19/1986 Smokeless Tobacco: Never Tobacco Cessation:Counseling Given: Yes Alcohol Use Standard Drinks/Week Comments Yes 5.8 (1 standard drink = 0.6 oz p ure alcohol) Social Connections Answer Date Recorded Social Connections and Isolation 0 05/10/2019 Financial Resource Strain Answer Date R ecorded Financial Resource Strain 0 2018 Stress Answer Date Recorded Stress 0 05/10/2019 Physical Activity Answer Date Recorded Physical Activity 0 05/10/2019 Food Insecurity Answer Date Recorded Food 0 05/10/2019 Transportation Needs Answer Date Record ed Transportation 0 05/10/2019 Housing Stability Answer Date Recorded Housing 0 05/10/2019 Safety and Environment Answer Date Sanjay rded Safety 0 05/10/2019 Utilities Answer Date Recorded Utilities 0 05/10/2019 Employment Answer Date Recorded Employment 0 05/10/2019 Comments No Sex and Gender Information Value Date Recorded Sex Assigned at Female 09/03/2017 12:15 PM PST Legal Sex Female 4:45 PM PDT Gender Identity Female 09/03/2017 12:15 PM PST Sexual Orientation Straight 09/03/2017 12 :15 PM PST Last Filed Vital Signs Vital Sign Reading Time Taken Comments Blood Pressure 132/82 10/15/2019 9:35 AM EST Pulse 78 10/15/2019 9:35 AM EST Temperature 36.8 ??C (98.2 ??F) 10/15/2019 9:[address] Respiratory Rate 12 10/11/2015 10:31 AM EST Oxygen Saturation 98% 10/15/2019 9:35 AM EST Inhaled Oxygen Concentration - - Weight 57.2 kg (126 lb) 10/15/2019 9:35 AM EST Height 162.6 cm (5' 4 ) 10/15/2019 9:35 AM EST Body Mass Index 21.63 10/15/2019 9:35 AM EST Plan of Treatment Not on file Insurance MEDICARE - [place] [facility] Member Subscriber Plan / Payer (Ef fective 2013-Present) Name:Raven Castilol Relation to Subscriber:Self Name:Raven Castillo Payer ID:[id number] Type:[employer] Address: [facility] [id number] [place] [address]
--- OUTSIDE RECORDS SUMMARY | 2025-01-15 16:29 | XMS_ITS | Data Portability ---
Author Organization [facility], [facility] Address [address] [place] [address] Care Team Providers Care Senior Clinical Data Manager Name Role Phone SHIV HAYWOOD Interior Design Principal RIOS GALO Primary Care Provider Assessment No assessment recorded. Plan of Treatment Reminders Order Date Submit Date Provider Last Modified By Organization Details Last Modified Time Details Appointments None record ed. Lab None record ed. Referral None record ed. Procedures None record ed. Surgeries None record ed. Imaging None record ed. Medication Orders None record ed. Patient TargetsNo targets recorded. Patient Instructions Encounter Date Encounter Id Patient Instructions Last Modified By Organization Details Last Modified Time 02/07/2016 [id number] The diagnosis along with the treatment/procedu re/medication(s) was discussed with the patient/caregiver at length, along with alternative treatments, complications, and side effects. The patient/caregiver understands the same and wishes to go along with this plan. [email or web address] Not available 02/07/2016 16:12:30 Reason for Referral None Reported. Problems Name Problem SNOMED Code Status Onset Date Resolution Date Notes Provider Name and Address Organization Details Recorded Time Atopic dermatitis 72891221 [facility] 16:12[facility]30 Problem Notes None recorded. Medical Equipment None Reported. Allergies Allergen ID Allergen Name Allergen Category Reaction Reaction Severity Criticality Documentation Date Start Date Code Code System Note Provider Name and Address Organization Details Recorded Time 339973 mineral oil medicatio n rash Not available Not available 02/07/2016 6972 RxNorm [facility] 6 14:04:37 Medications Name Sig Start Date Stop Date Status Note LastModified by Organization Details LastModified Time azithromycin 250 mg tablet active Not Available Not Available Not Available fluconazole 150 mg tablet active Not Available Not Available Not Available desonide 0.05 % topical ointment active Not Available Not Available Not Available hydrochlorot hiazide 25 mg tablet take 1/2 tablet by mouth daily active Not Available Not Available Not Available losartan 100 mg tablet take 1 tablet by mouth once daily active Not Available Not Available No t Available desoximetaso ne 0.05 % topical ointment active Not Available Not Available Not Available Fluzone High-Dose (PF) 180 mcg/0.5 mL intramuscula r syringe inject 0.5 milliliter intramuscul norma active Not Available Not Available No t Available Vitals Date Recorded Body mass index (BMI) Body weight Body height Body temperature Oxygen saturation Oxygen saturation in Arterial blood by Pulse oximetry Respiratory rate Heart rate Systolic blood pressure Diastolic blood pressure Provider Name and Address Organization Details Last Updated DateTime 6 20 kg/m2 64317.0 844 g 165.1 cm 97.9 [degF] 100 % 100 % 16 /min 90 /min 146 mm[Hg] 90 mm[Hg] Sammi Navas [facility] 6 14:02:35 Social History None recorded. Functional Status None recorded. Mental Status None recorded. Family History Relationship Description Onset Age of this Age Resolved Age Notes LastModified by Organization Details LastModified Time Mother Family history of malignant neoplasm 26 [email or web address] Not available 2015 13:59:39 Father Heart disease 75 [email or web address] Not available 2015 13:59:39 Medical History Condition Response High Blood Pressure Y Ear or Hearing Problems N Thyroid Problems N Eye Disorders N Kidney Disease/Dialysis N Lung Disease (Emphysema/Asthma/Chronic B ronchitis N Stroke or Paralysis N Heart disease, heart attack, or other ca rdiovascular condition N Blood Disorders/Anemia N Eczema, Hives or other skin conditions N Diabetes (Diet/Insulin/Pill Control) N Urology Problems (Interstitial Cystitis/ Benign Prostate Hypertrophy (BPH) N Any illness or injury in the last 5 year s N Seizures/Epilepsy N Muscle, Joint, or Bone Problems/Arthriti s/Rheumatological N Serious Illness or Injuries N Hospital Admission in the past year N Cancer N Headaches/Brain Injuries or Disorders N Chronic Pain N Heart Surgery (Valve/Bypass/Angioplasty) N Allergies Y Psychiatric Disorder/Depression/Anxiety/ Insomnia N other N Loss or Altered Consciousness N Gynecological N Abdominal/Digestive N High Cholesterol N Liver Disease N Low Back Pain N Gynecological HistoryNo gynecological history recorded. Obstetrics History GPAL:G 0 P 0 0 0 0 Past Encounters Encounter ID Performer Location Encounter Start Date Encounter Closed Date Diagnosis/Indication Diagnosis SNOMED-CT Code Diagnosis ICD10 Code Diagnosis Note [id number] Sara Hensley PA-C [facility] [address] [place] [id number] 02/07/2016 13:50:34 02/07/2016 16:17:25 Atopic dermatitis 09192865 L20.9 Discussed skin care with patient and that she should follow the directions of her dermatolog ist; try zantac and benadryl for itching benadryl at night; she refuses a course of prednisone . She might benefit from a second opinion from another dermatolog ist which she will discuss with her PCP. Health Concerns Section Related Observation LastModified by Organization Detai ls LastModified Time None Recorded Concern Status LastModified by Organization Details LastModified Time None Recorded Advance Directives Directive None Recorded Payers Encounter Date Sequence Insurance Name Policy Number Policy Bruno Covered Member ID Bruno Member ID Guarantor Name 02/07/2016 1 [place] [employer] Raven Hairston Jonathan [id number] Raven Jonathan 02/07/2016 2 [place] [id number] Raven Jonathan [id number] Raven Jonathan Notes Date Note Type Note Provider Name and Address Organization Details Recorded Time 02/07/2016 text/html Rash/Skin LesionReported bypatient.Location: [facility] Quality:itchy Severity:mild Duration:has noted for >3 months Onset/Timing:gradual onset; since September Context:no new detergents or skin products; no one else with similar rash; Has seen a optimization analyst Dr Haywood in [place] and had patch testing by dermatology last year. Has been on multiple creams and has been advised to be using Vaseline but states makes it too itchy. Alleviating Factors:nothing gives relief Aggravating Factors:nothing makes it worse Associated Symptoms:no fever; no cold symptoms; no nausea; no vomiting; no diarrhea; no urinary symptoms sara mccray, [facility] 02/07/2016 16:12:42 OBGyn Episode No OBEpisode recorded.
== END 2025-01-15 15:55 | disposition home or self-care (01) ==
LOC: HO.HMCH 14:22
PROVIDERS: PCP Internal Medicine; Visit Provider Physician Assistant Medical
DX: Z00.00 Encounter for general adult medical examination without abnormal findings (principal); I10 Essential (primary) hypertension; Z85.3 Personal history of malignant neoplasm of breast

== ENCOUNTER → 2025-01-15 14:21 | Outpatient (BNVA) | payer MEDICARE, SELFPAY | PROVIDERS: PCP Internal Medicine; Visit Provider Physician Assistant Medical | DX: Z00.00 Encounter for general adult medical examination without abnormal findings (principal); I10 Essential (primary) hypertension; Z85.3 Personal history of malignant neoplasm of breast | CPT/HCPCS: 96127; 99212 ==

== ENCOUNTER 2025-06-19 13:02 | Outpatient (AMB) | payer MEDICARE, SELFPAY ==
[2025-06-19 13:07] VITALS: BP 150/71; PULSE 82; RESP 16; TEMP 36.1; O2SAT 100; BMI 19.4
--- NOTE | 2025-06-19 13:07 | A.OFFPC_ITS ---
Vital Signs 06/19/25 13:07 06/19/25 13:50 Height 5 ft 4 in Weight 113 lb BMI 19.4 BP 150/71 H 138/82 Blood Pressure Location Rt brachial Lt brachial Position Sitting Respiration 16 Pulse 82 Pulse Source Pulse Oximeter Temp 97.0 F Temp Source Temporal Artery Scan Pulse Oximetry (%) 100 Oxygen Delivery Method Room Air Intake Visit Reasons: Follow Up Accompanied by: Self / Same As Patient Allergies amoxicillin (From Augmentin) Allergy (Intermediate, Verified 06/19/25 14:56) Hives clavulanic acid (From Augmentin) Allergy (Intermediate, Verified 06/19/25 14:56) Hives doxycycline Allergy (Intermediate, Verified 06/19/25 14:56) Hives tramadol Allergy (Intermediate, Verified 06/19/25 14:56) Hives Glycerol oma of wood rosin Adverse Reaction (Mild, Uncoded 06/19/25 14:56) Itching hexyl cinnamal Adverse Reaction (Mild, Uncoded 06/19/25 14:56) Itching Medication List - Last Reconciled 06/19/25 by Neva Foley PA-C blood pressure monitor As directed hydrochlorothiazide 12.5 mg PO DAILY losartan 100 mg PO DAILY valacyclovir 1,000 mg PO BID PRN walker As directed walker Folding front wheeled walker Tobacco use date assessed: 06/19/25 Fall risk assessment: No Falls in past year Last assessed Fall Risk: 06/19/25 Dental Screening Dental Screen Date: 06/19/25 Did you have a dental visit in the last 12 months?: Yes Was dental information given to patient?: Patient has dentist HPI Follow Up HPI Details The patient is a 75-year-old female presenting for a follow-up visit to manage her hypertension and review her medication regimen. The patient has a history of essential hypertension, which has been present since the first time her blood pressure was checked. She is currently on hydrochlorothiazide 12.5 mg and losartan 100 mg, which she restarted after a hospital stay for a hip issue where she was advised to stop temporarily. Her blood pressure tends to run high, but she reports no dizziness or other symptoms related to her hypertension. The patient has a history of hyponatremia, which is a concern due to her use of hydrochlorothiazide. Blood work is planned to monitor her sodium levels, as well as other parameters, to ensure her medication is not adversely affecting her electrolyte balance. The patient also has osteoporosis, but she has chosen not to pursue medication for this condition due to concerns about potential side effects. She has declined bone density scans and prefers to manage her condition without pharmacological intervention. [facility] Medical History (Updated 06/19/25 @ 15:02 by Neva Foley PA-C) Osteoporosis History of mammogram (~09/15/24) Encounter for annual wellness exam in Medicare patient Hammer toe History of breast cancer Essential hypertension Chronic low back pain Surgical History History of hip surgery H/O laminectomy H/O lumpectomy History of surgery on lower extremity Family History Mother Breast cancer Father CHF (congestive heart failure) Social History Household Members: Other Housing: Apartment Do you presently have visiting nurse or other home services: No Alcohol intake: current Alcohol intake frequency: does not drink Patient Tobacco Use Status: Never used Tobacco service: No Current occupational status: retired Cognitive needs: Yes Hearing needs: No Vision needs: Yes Questionnaire PHQ-9 Over the last 2 weeks, how often have you been bothered by any of the following problems? 1. Little interest or pleasure in doing things: not at all 2. Feeling down, depressed, or hopeless: not at all 3. Trouble falling or staying asleep, or sleeping too much: not at all 4. Feeling tired or having little energy: not at all 5. Poor appetite or overeating: not at all 6. Feeling bad about yourself - or that you are a failure or have let yourself or your family down: not at all 7. Trouble concentrating on things, such as reading the newspaper or watching television: not at all 8. Moving or speaking so slowly that other people could have noticed. Or the opposite - being so fidgety or restless that you have been moving around a lot more than usual: not at all 9. Thoughts that you would be better off or of hurting yourself in some way: not at all Total score: 0 Depression Screening Interpretation: Negative Depression Screening Done: Yes 97983 - PHQ-9 Billing: Yes Source: Developed by Drs. Ildefonso Vazquez, Diya Berg, Emeka Galvan and colleagues, with an educational ida from [employer]. Thrive Questionnaire Date Thrive assessed: 06/19/25 I am a: Patient What is your living situation today?: I have a steady place to live Within the past 12 months, did the food you bought not last and you didn't have the money to get more?: Never true Within the past 12 months, did you worry whether your food would run out before you got money to buy more?: Never true Do you have trouble paying for medicines?: No Do you have trouble getting transportation to medical appointments?: No Do you have trouble paying your heating and electricity bill?: No Do you have trouble taking care of your child, family member or friend?: No Do you have trouble with day-to-day activities such as bathing, preparing meals, shopping, managing finances, etc.?: No Are you currently unemployed and looking for a job?: No Are you interested in more education?: No Please select the resources that you would like help with: None Currently or been in a relationship where the following occur: No concerns reported THRIVE Score: 0 AUDIT C Alcohol Use Questionnaire (AUDIT-C) 1. How often do you have a drink containing alcohol?: Never Total Score: 0 Score Reviewed/Action Taken: No DUDLEY-7 AMB Questionnaire DUDLEY-7 Date DUDLEY - 7 assessed: 06/19/25 Feeling nervous, anxious, or on edge: 0 = Not at all Not being able to stop or control worryin = Not at all Worrying too much about different things: 0 = Not at all Trouble relaxin = Not at all Being so restless that it is hard to sit still: 0 = Not at all Becoming easily annoyed or irritable: 0 = Not at all Feeling afraid as if something awful might happen: 0 = Not at all Total DUDLEY-7 score (0-4 normal; 5-9 mild; 10-14 moderate; 15-21 severe): 0 Source: Developed by Drs. Ildefonso Vazquez, Diya Berg, Emeka Galvan and colleagues, with an educational ida from [employer]. DUDLEY-7 Assessment Billing DUDLEY-7 Assessment Tool: DUDLEY-7 Assessment 74149 Review of Systems Const Details: - Cardiovascular: Denies dizziness or other symptoms related to hypertension. All systems reviewed & are unremarkable except as noted in HPI and below Physical exam (Primary Care) Vital Signs: Last Vital Signs Temp 97.0 F 06/19/25 13:07 Pulse 82 06/19/25 13:07 Resp 16 06/19/25 13:07 BP 150/71 H 06/19/25 13:07 Pulse Ox 100 06/19/25 13:07 Oxygen Delivery Method Room Air 06/19/25 13:07 Care Plan Goal for BP management: <140/90 at Goal BMI result Body Mass Index 19.4 BMI Assessment/Plan discussion: Low BMI Low, Plan discussed: lifestyle, increase calorie intake, dietary and other Tobacco/Smoking Status: Tobacco use Status Tobacco use date assessed 06/19/25 06/19/25 13:09 Patient Tobacco Use Status Never used Tobacco 06/19/25 13:09 PHQ-9: PHQ-9 Score PHQ-9: Total score 0 06/19/25 13:20 Depression Screening Interpretation: Negative Thrive Assessment: Date of Thrive Assessment Date Thrive assessed 06/19/25 06/19/25 13:09 Currently or been in a relationship where the following occur: No concerns reported Const Other: Appearance: Alert. Oriented X3. No acute distress. Head: Normal external exam. Normocephalic. Atraumatic. Eyes: Pupils are equal, round, and reactive to light. Extraocular movements intact. Conjunctiva and sclera normal. Eyelids normal. Throat: Pharynx normal. Uvula midline. Moist mucous membranes. Neck: Normal inspection. Neck supple. Full range of motion. Cardiovascular: Blood pressure recorded at 138/82 in the left arm. Normal heart rate and rhythm. Heart sound normal. No murmurs noted. Pulses normal throughout. Respiratory: No respiratory distress. Painless inspiration. Breath sounds normal. No wheezes/rales/rhonchi noted. Chest nontender. No accessory muscle usage noted or decreased air movement noted. Back: Full range of motion noted. Skin: Skin warm and dry. Normal skin color. Normal skin turgor. No rashes/lesions/lacerations noted. Extremities: Extremities exhibit normal range of motion. Neuro: Oriented X 3. No motor deficit. No sensory deficit. Reflexes normal. Office Procedures Flu Questionnaire Does the patient have a severe egg allergy?: No Does the patient have severe life threatening allergies?: No Does the patient have a fever or illness today?: No Has the patient ever had Guillain-[place] Syndrome?: No Has the patient ever had any past reaction to a flu shot?: No Immunizations Fluarix [id number] (PF) 45 mcg (15 mcg x 3)/0.5 mL IM syringe Performing Provider: Neva Foley PA-C [facility] Documented (not given) by: Mabel Cruz CMA on 06/19/25 13:21 Reason Not Given: Received Previously Coding Level of Care Code Est Pt Level 4 (71252) Complex EM visit Add On G2211 Diagnoses Essential hypertension I10 Hyponatremia E87.1 Osteoporosis M81.0 Additional Codes DUDLEY-7 Assessment Billing - DUDLEY-7 Assessment Tool: DUDLEY-7 Assessment 86580 ([id number]) PHQ-9 - 76611 - PHQ-9 Billing: Yes ([id number]) Assessment & Plan Assessment & Plan (1) Essential hypertension: Code(s): I10 - Essential (primary) hypertension Category: Medical Plan: The patient is advised to continue her current antihypertensive regimen of hydrochlorothiazide and losartan. Blood pressure will be monitored regularly, and adjustments to medication will be made if necessary. (2) Hyponatremia: Code(s): E87.1 - Hypo-osmolality and hyponatremia Category: Medical Plan: Blood work is ordered to monitor sodium levels and other electrolytes due to the patient's use of hydrochlorothiazide. The patient is instructed to undergo fasting blood tests to ensure accurate results. (3) Osteoporosis: Code(s): M81.0 - Age-related osteoporosis without current pathological fracture Category: Medical Plan: The patient has opted not to take medication for osteoporosis due to concerns about side effects. She will continue to manage her condition without pharmacological intervention. Plan Plan Patient was informed and verbally consented to the use of an ambient scribe for clinic note documentation during this visit. 1. Essential Hypertension The patient is advised to continue her current antihypertensive regimen of hydrochlorothiazide and losartan. Blood pressure will be monitored regularly, and adjustments to medication will be made if necessary. 2. Hyponatremia Blood work is ordered to monitor sodium levels and other electrolytes due to the patient's use of hydrochlorothiazide. The patient is instructed to undergo fasting blood tests to ensure accurate results. 3. Osteoporosis The patient has opted not to take medication for osteoporosis due to concerns about side effects. She will continue to manage her condition without pharmacological intervention. During the visit, I discussed the importance of monitoring blood pressure and sodium levels with the patient, especially given her current medication regimen. We reviewed the potential side effects of osteoporosis medications, and the patient expressed her preference to avoid them. I advised her to complete the fasting blood work and scheduled a follow-up in six months to reassess her condition. Orders: Orders Influenza [id number] Immunization Today Z23 - Encounter for immunization Complete Blood Count Auto Diff Today Z00.00 - Encounter for general adult medical examination without abnormal findings Hemoglobin A1c Today Z00.00 - Encounter for general adult medical examination without abnormal findings Magnesium Today Z00.00 - Encounter for general adult medical examination without abnormal findings Vitamin D 25-OH Total Today Z00.00 - Encounter for general adult medical examination without abnormal findings C Reactive Protein Today Z00.00 - Encounter for general adult medical examination without abnormal findings Comprehensive [place]. Panel Fast Today Z00.00 - Encounter for general adult medical examination without abnormal findings Lipid Panel Today Z00.00 - Encounter for general adult medical examination without abnormal findings Liver Panel Today Z00.00 - Encounter for general adult medical examination without abnormal findings Vitamin B12 and Folate Today Z00.00 - Encounter for general adult medical examination without abnormal findings TSH reflex Free T4 Today Z00.00 - Encounter for general adult medical examination without abnormal findings UA CC w/rflx Micro + Cult Today Z00.00 - Encounter for general adult medical examination without abnormal findings Erythrocyte Sedimentation Rate Today Z00.00 - Encounter for general adult medical examination without abnormal findings Patient Instructions: - Continue taking hydrochlorothiazide and losartan as prescribed. - Complete fasting blood work as ordered, avoiding food and drink except water and black coffee for 10-12 hours prior. - Monitor blood pressure regularly and report any significant changes or symptoms. - Follow up in six months for reassessment.
--- OUTSIDE RECORDS SUMMARY | 2025-06-19 13:24 | XMS_ITS | Encounter Summary ---
Author Organization [facility] Address [address] [facility] [address] [place] [address] Phone Care Team Providers Care Gamma Ray Operator Name Role Phone Venice Chua MD Primary Care Provider [phone]- [phone] Encounter Details Date Type Department Care Team (Latest Contact Info) Description 10/31/2022 Transcribe Orders Virtual Department [address] [place] [address] Leigh Ann Geronimo NP [address] [facility] [address] [place] [address] Dense breast tissue on mammogram (Primary Dx); Invasive ductal carcinoma of right breast Social History Tobacco Use Types Packs/Day Years Used Date Smoking Tobacco: Former Comments Unknown Sex and Gender Information Value Date Recorded Sex Assigned at Not on file Legal Sex Female 7:26 AM EDT Gender Identity Not on file Sexual Orientation Not on file documented as of this encounter Plan of Treatment Not on file documented as of this encounter Visit Diagnoses Diagnosis Dense breast tissue on mammogram- Primary Invasive ductal carcinoma of right breast documented in this encounter Care Teams Gamma Ray Operator Relationship Specialty Start Date End Date Venice Chua MD [address] [facility] [address] [place] [address] [email or web address] PCP - General Internal Medicine 10/25/22 documented as of this encounter Additional Source Comments The information contained in this document represents components of the legal health record. It is not the complete legal health record.[facility]
--- OUTSIDE RECORDS SUMMARY | 2025-06-19 13:24 | XMS_ITS | Patient Health Record ---
Author Organization [facility] Address [address] [place] [address] Care Team Providers Care Sash Assembler Name Role Phone Venice Chua MD Primary Care Provider Unavail able ALENA PAOLA Unavailable [phone] Allergies Allergen (clinical drug ingredient) Drug/Non Drug Allergy documented on EMR Reaction Allergy Type Onset Date Status blue dye 106 & 124 (uncoded) Unknown Allergy Active nickel nickel (uncoded) Unknown Allergy Act joseph Dye CUSTODIAL Blue 1 Unknown Drug Allergy Ac tive [...] GM 1 tablet Orally On ce a day; Duration: 10 day(s) Active Social History Tobacco Use: [...] Problem Status W/U Status Risk Notes Problem Localized, primary osteoarthritis of the shoulder region (251486962) Arthritis of right shoulder region (M19.011) Active confirmed Problem Right rotator cuff syndrome ([id number]) Dysfunction of right rotator cuff (M67.911) Active confirmed Plan Of Treatment Pending Test Test Name Order Date XR Hip/Pelvis 2-3 v RT Unilat 03/25/2019 Insurance Providers Payer Name Payer Address Payer Phone Subscriber Number Group Number Insured Name Patient Relationship to Insured Coverage Start Date Coverage End Date Medicare [address] [place] [id number] Raven Castillo Self - patient is the insured Med[employer] [address] [place] [address] [phone] [id number] Raven Castillo Self - patient is the [...]
--- OUTSIDE RECORDS SUMMARY | 2025-06-19 13:24 | XMS_ITS | Clinical Summary ---
Author Organization [facility] Address [address] [place] [address] Care Team Providers Care Back Maker Name Role Phone Unavailable Primary Care Provider [...] se, trivalent, PF 06/09/2017,06/09/2015 PNEUMOCOCCAL POLYSACCHARIDE PPV23 (Pneumovax 23) 10/17/2013 Td (adult),2 Lf tetanus toxo id (TDVAX), preservative free 03/22/2007 ZOSTER VACCINE, RECOMBINANT (SHINGRIX) 8,11/26/2017 [...] 78 10/15/2019 9:35 AM EST Temperature 36.8 C (98.2 F) 10/15/2019 9:35 AM EST Respiratory Rate 12 10/11/2015 10:31 AM EST Oxygen Saturation 98% 10/15/2019 9:35 AM EST Inhaled Oxygen Concentration - - Weight 57.2 kg (126 lb) 10/15/2019 9:35 AM EST Height 162.6 cm (5' 4 ) 10/15/2019 9:35 AM EST Body Mass Index 21.63 10/15/2019 9:35 AM EST Plan of Treatment Not on file Insurance MEDICARE - [place] [facility] Address: [facility] [id number] [place], [place] [address]
--- OUTSIDE RECORDS SUMMARY | 2025-06-19 13:24 | XMS_ITS | Clinical Summary ---
Author Organization [facility] Address [address] [facility] [address] [place] [address] Phone Care Team Providers Care Bitumen Plant Operator Name Role Phone Venice Chua MD Primary Care Provider [phone]- [phone] Allergies Active Allergy Reactions Criticality Noted Date Comments Amlodipine Other (See Comments) 11/10/2016 loopy Atenolol 10/09/2014 FATIGUE EXTREME Amoxicillin-Pot Clavulanate 10/25/2022 Blue Dye Hives 09/30/2018 Clonidine 10/09/2014 UNSTEADY GAIT , DIZZINESS Diovan (Valsartan) GI Upset 09/21/2016 Latex Rash Low 02/16/2016 Lisinopril 09/21/2016 Mineral Oil Rash Low 10/25/2022 Olmesartan 10/09/2014 h Tramadol Rash Low 04/28/2019 Verapamil 10/09/2014 palpitations Medications losartan (COZAAR) 100 MG tablet Take 100 mg by mouth daily. Active hydroCHLOROthia zide (HYDRODIURIL) 25 MG tablet Take 12.5 mg by mouth daily. 2 Active valACYclovir (VALTREX) 1000 MG tablet TAKE TWO TABLETS BY MOUTH AT FIRST SIGN OF INFECTION AND THEN TAKE TWO TABLETS BY MOUTH EVERY 12 HOURS 2 Active Active Problems Problem Noted Date Diagnosed Date Allergic contact dermatitis due to metals 2016 Allergic contact dermatitis due to cosmetics Allergic contact dermatitis due to dyes 10/31/19 17 Contact allergic reaction 10/25/2016 Allergic contact dermatitis 09/21/2016 Family History Medical History Relation Comments Heart failure Father Breast cancer Mother Relation Status Comments Father Mother Social History Tobacco Use Types Packs/Day Years Used Date Smoking Tobacco: Former Education Answer Date Recorded Are you interested in more education? Not on tristan e 01/12/2023 Are you concerned about learning? Not on file 01/12/2023 No 01/12/2023 No 01/12/2023 Digital Access Answer Date Recorded No 02/12/2023 No 02/12/2023 No 02/12/2023 Reliable internet access at home? Not on file 02/12/2023 Device with a working camera? Not on file Comments Unknown Sex and Gender Information Value Date Recorded Sex Assigned at Not on file Legal Sex Female 7:26 AM EDT Gender Identity Not on file Sexual Orientation Not on file Last Filed Vital Signs Vital Sign Reading Time Taken Comments Blood Pressure 164/82 10/25/2022 12:45 PM EST Pulse 73 10/25/2022 12:45 PM EST Temperature 36 C (96.8 F) 10/25/2022 12:45 PM EST Respiratory Rate 16 10/25/2022 12:45 PM EST Oxygen Saturation 100% 10/25/2022 12:45 PM EST Inhaled Oxygen Concentration - - Weight - - Height - - Body Mass Index - - Plan of Treatment Health Maintenance Due Date Last Done Comments CREATININE LEVEL 1948 POTASSIUM LEVEL 1948 DEPRESSION SCREENING 1960 SMOKING Hx and SMOKELESS TOBACCO SCREENING 1961 HEPATITIS C SCREENING 1966 OSTEOPOROSIS SCREENING INITIAL (ONE-TIME) 2013 PNEUMOCOCCAL VACCINES (50+ years) (2 of 2 - PCV) 10/17/2014 10/17/2013 Adult Td,Tdap Booster 03/22/2017 03/22/2007 RSV VACCINE (1 - 1-dose 75+ series) 2023 LIPID PANEL 10/08/2023 10/08/2018 INFLUENZA VACCINE (#1) 2025 9, 05/27/2018, 06/09/2017, Additional history exists COVID-19 VACCINE (2 - 2024- season) 2025 11/13/2020 ZOSTER VACCINES Completed 03/08/2018, 11/15, 08/25/2010 HEPATITIS A VACCINES Aged Out No long er eligible based on patient's age to complete this topic HIB VACCINES Aged Out No longer eligi ble based on patient's age to complete this topic MENINGOCOCCAL VACCINES (ACWY) Aged Out No longer eligible based on patient's age to complete this topic MENINGOCOCCAL VACCINES (B) Aged Out N o longer eligible based on patient's age to complete this topic Medical Devices Not on file Insurance [employer] MEDEX SUPPLEMENT MEDICARE PART A & B [employer] SUPPLEMENT MEDICARE PART A & B [employer] SUPPLEMENT MEDICARE PART A & B [employer] SUPPLEMENT MEDICARE PART A & B [employer] MEDEX SUPPLEMENT MEDICARE PART A & B [employer] MEDEX SUPPLEMENT MEDICARE PART A & B [employer] MEDEX SUPPLEMENT MEDICARE PART A & B [employer] SUPPLEMENT MEDICARE PART A & B MED[employer] SUPPLEMENT MEDICARE PART A & B Care Teams Bitumen Plant Operator Relationship Specialty Start Date End Date Venice Chua MD [address] [facility] [address] [place] [address] [email or web address] PCP - General Internal Medicine 10/25/22 Additional Source Comments The information contained in this document represents components of the legal health record. It is not the complete legal health record.[facility]
[2025-06-19 13:50] VITALS: BP 138/82
== END 2025-06-19 13:33 | disposition home or self-care (01) ==
LOC: HO.HMCSH 13:02
PROVIDERS: PCP Internal Medicine; Visit Provider Physician Assistant Medical
DX: I10 Essential (primary) hypertension (principal); E87.1 Hypo-osmolality and hyponatremia; M81.0 Age-related osteoporosis without current pathological fracture; Z23 Encounter for immunization

== ENCOUNTER → 2025-06-19 13:02 | Outpatient (BNVA) | payer MEDICARE, SELFPAY | PROVIDERS: PCP Internal Medicine; Visit Provider Physician Assistant Medical | DX: I10 Essential (primary) hypertension (principal); E87.1 Hypo-osmolality and hyponatremia; M81.0 Age-related osteoporosis without current pathological fracture; Z28.89 Immunization not carried out for other reason; Z79.899 Other long term (current) drug therapy | CPT/HCPCS: 90471; 96127; 99212 ==

== ENCOUNTER 2025-06-20 08:47 | Outpatient (REF) | payer MEDICARE, SELFPAY ==
--- OUTSIDE RECORDS SUMMARY | 2025-06-20 08:50 | XMS_ITS | Patient Health Record ---
Author Organization [facility] Address [address] [place] [address] Care Team Providers Care Dieing Out Machine Operator Name Role Phone Veniec Chua MD Primary Care Provider Unavail able ALENA PAOLA Unavailable [phone] Allergies Allergen (clinical drug ingredient) Drug/Non Drug Allergy documented on EMR Reaction Allergy Type Onset Date Status blue dye 106 & 124 (uncoded) Unknown Allergy Active nickel nickel (uncoded) Unknown Allergy Act joseph Dye INTERMEDIATE Blue 1 Unknown Drug Allergy Ac tive [...] Localized, primary osteoarthritis of the shoulder region (440969001) Arthritis of right shoulder region (M19.011) Active confirmed Problem Right rotator cuff syndrome (706125420533761) Dysfunction of right rotator cuff (M67.911) Active confirmed Plan Of Treatment Pending Test Test Name Order Date XR Hip/Pelvis 2-3 v RT Unilat 03/25/2019 Insurance Providers Payer Name Payer Address Payer Phone Subscriber Number Group Number Insured Name Patient Relationship to Insured Coverage Start Date Coverage End Date Medicare [address] [place] [phone] [id number] Raven Castillo Self - patient is the insured [employer] [address] [place] [address] [phone] [id number] Raven Castillo Self - patient is the [...]
--- OUTSIDE RECORDS SUMMARY | 2025-06-20 08:50 | XMS_ITS | Clinical Summary ---
Author Organization [facility] Address [address] [place] [address] Care Team Providers Care Senior Benefits Analyst Name Role Phone Unavailable Primary Care Provider [...] Not on file Insurance MEDICARE - [place] [facility]
--- OUTSIDE RECORDS SUMMARY | 2025-06-20 08:50 | XMS_ITS | Clinical Summary ---
Author Organization [facility] Address [address] [place] [address] Phone Care Team Providers Care Book Canvasser Name Role Phone Venice Chua MD Primary Care Provider +1- [phone] Allergies Active Allergy Reactions Criticality Noted Date [...] topic Medical Devices Not on file Insurance [employer] SUPPLEMENT MEDICARE PART A & B [employer] MED[employer] SUPPLEMENT MEDICARE PART A & B [employer] SUPPLEMENT MEDICARE PART A & B [employer] SUPPLEMENT MEDICARE PART A & B [employer] MED[employer] SUPPLEMENT MEDICARE PART A & B [employer] MED[employer] SUPPLEMENT MEDICARE PART A & B [employer] MED[employer] SUPPLEMENT MEDICARE PART A & B [employer] MED[employer] SUPPLEMENT MEDICARE PART A & B MEDEX SUPPLEMENT MEDICARE PART A & B Care Teams Book Canvasser Relationship Specialty Start Date End Date Venice Chua MD [address] [facility] [address] [place] [address] [email or web address] PCP - General Internal Medicine 10/25/22 Additional Source Comments The information contained in this document represents components of the legal health record. It is not the complete legal health record.[facility]
--- OUTSIDE RECORDS SUMMARY | 2025-06-20 08:50 | XMS_ITS | Encounter Summary ---
Author Organization [facility] Address [address] [facility] [address] [place] [address] Phone Care Team Providers Care Market Researcher Name Role Phone Venice Chua MD Primary Care Provider +1- [phone] Encounter Details Date Type Department Care Team (Latest Contact Info) Description 10/31/2022 Transcribe Orders Virtual Department [address] [place] [address] Leigh Ann Geronimo NP [address] [facility] [address] [place] [address] Dense breast tissue on mammogram (Primary Dx); [...] breast documented in this encounter Care Teams Market Researcher Relationship Specialty Start Date End Date Venice Chua MD [address] [facility] [address] [place] [address] [email or web address] PCP - General Internal Medicine 10/25/22 documented as of this encounter Additional Source Comments The information contained in this document represents components of the legal health record. It is not the complete legal health record.[facility]
[2025-06-20 09:07] LABS: MANUAL DIFF FLAG NO
[2025-06-20 09:22] LABS: Hematocrit 39.3 % (37.0-47.0); Hemoglobin 13.1 g/dl (12.0-16.0); Imm Gran Abs Auto 0.01 X10*3/uL (0.00-0.03); Imm Gran Pct Auto 0.3 % (0.0-0.4); Lymphocytes Absolute Auto 1.1 X10*3/uL (1.2-4.9); Mean Corpuscular HGB Conc 33.3 g/dl (31.0-35.0); Mean Corpuscular Hemoglobin 29.6 pg (27.0-33.0); Mean Corpuscular Volume 88.7 fL (80.0-98.0); NRBC Abs Auto 0.000 X10*3/uL (0.0-0.012); NRBC Pct Auto 0.0 /100WBC (0.0-0.2); Platelet Count 200 X10*3/uL (160-400); Red Blood Count 4.43 X10*6/uL (4.20-5.50); White Blood Count 3.5 X10*3/uL (4.8-10.8)
[2025-06-20 09:34] LABS: Appearance Urine Clear; Glucose Urine UA Negative (Negative); PH 7.0 (5.0-9.0); Specific Gravity - Urine 1.010 (1.005-1.025)
[2025-06-20 10:21] LABS: Alanine Aminotransferase 71 U/L (0-31); Albumin Level 4.3 g/dL (3.5-5.0); Alkaline Phosphatase 144 U/L (39-117); Anion Gap 12 (12-20); Aspartate Amino Transferase 64 U/L (5-31); Blood Urea Nitrogen 10 mg/dL (9-16); Calcium 9.4 mg/dL (8.4-10.2); Carbon Dioxide 25 mmol/L (22-29); Chloride 95 mmol/L (96-108); Cholesterol 221 mg/dL (<200); Estimated Glomerular Filt Rate > 60; HDL Cholesterol 79 mg/dL (>40); Magnesium 1.8 mg/dL (1.6-2.6); Potassium 4.0 mmol/L (3.3-5.1); Sodium 128 mmol/L (135-145); Total Protein 7.1 g/dL (6.5-8.0); Triglycerides 53 mg/dL (<150)
[2025-06-20 10:48] LABS: Folate 4.6 ng/mL (> or = 4.0); Vitamin B12 454 pg/mL (200-900)
== END 2025-06-20 08:48 | disposition home or self-care (01) ==
LOC: HO.LAB 08:47
PROVIDERS: PCP Internal Medicine; Visit Provider Physician Assistant Medical
DX: Z00.00 Encounter for general adult medical examination without abnormal findings (principal); Z13.1 Encounter for screening for diabetes mellitus; Z13.6 Encounter for screening for cardiovascular disorders
CPT/HCPCS: 36415; 80053; 80061; 80076; 81003; 82248; 82306; 82607; 82746; 83036; 83735; 84443; 85025; 85652; 86140

== ENCOUNTER 2025-06-30 09:17 | Outpatient (REF) | payer MEDICARE, SELFPAY ==
--- OUTSIDE RECORDS SUMMARY | 2025-06-30 10:09 | XMS_ITS | Patient Health Record ---
Author Organization [facility] Address [address] [place] [address] Care Team Providers Care Tent Worker Name Role Phone Venice Chua MD Primary Care Provider Unavail able ALENA PAOLA Unavailable [phone] Allergies Allergen (clinical drug ingredient) Drug/Non Drug Allergy documented on EMR Reaction Allergy Type Onset Date Status blue dye 106 & 124 (uncoded) Unknown Allergy Active nickel nickel (uncoded) Unknown Allergy Act joseph Dye HALF-WAY Blue 1 Unknown Drug Allergy Ac tive [...] Localized, primary osteoarthritis of the shoulder region (195339816) Arthritis of right shoulder region (M19.011) Active confirmed Problem Right rotator cuff syndrome (742513475690412) Dysfunction of right rotator cuff (M67.911) Active confirmed Plan Of Treatment Pending Test Test Name Order Date XR Hip/Pelvis 2-3 v RT Unilat 03/25/2019 Insurance Providers Payer Name Payer Address Payer Phone Subscriber Number Group Number Insured Name Patient Relationship to Insured Coverage Start Date Coverage End Date Medicare [address] [place] [id number] Raven Castillo Self - patient is the insured [employer] [address] [place] [address] [phone] [id number] Raven Castillo Self - patient is the [...]
--- OUTSIDE RECORDS SUMMARY | 2025-06-30 10:09 | XMS_ITS | Clinical Summary ---
Author Organization [facility] Address [address] [place] [address] Care Team Providers Care Decorating Consultant Name Role Phone Unavailable Primary Care Provider [...] Not on file Insurance MEDICARE - [place] [facility]
--- OUTSIDE RECORDS SUMMARY | 2025-06-30 10:09 | XMS_ITS | Clinical Summary ---
Author Organization [facility] Address [address] [facility] [address] [place] [address] Phone Care Team Providers Care Ribbon Lap Machine Tender Name Role Phone Venice Chua MD Primary Care Provider +1- [phone] Allergies Active Allergy Reactions Criticality Noted Date [...] topic Medical Devices Not on file Insurance [employer] MEDEX SUPPLEMENT MEDICARE PART A & B [employer] MED[employer] SUPPLEMENT MEDICARE PART A & B [employer] MED[employer] SUPPLEMENT MEDICARE PART A & B [employer] MED[employer] SUPPLEMENT MEDICARE PART A & B [employer] MED[employer] SUPPLEMENT MEDICARE PART A & B [employer] MED[employer] SUPPLEMENT MEDICARE PART A & B [employer] MED[employer] SUPPLEMENT MEDICARE PART A & B [employer] MED[employer] SUPPLEMENT MEDICARE PART A & B MEDEX SUPPLEMENT MEDICARE PART A & B Care Teams Ribbon Lap Machine Tender Relationship Specialty Start Date End Date Venice Chua MD [address] [facility] [address] [place] [address] [email or web address] PCP - General Internal Medicine 10/25/22 Additional Source Comments The information contained in this document represents components of the legal health record. It is not the complete legal health record.[facility]
--- OUTSIDE RECORDS SUMMARY | 2025-06-30 10:09 | XMS_ITS | Encounter Summary ---
Author Organization [facility] Address [address] [facility] [address] [place] [address] Phone Care Team Providers Care Centrex Radio Operator Name Role Phone Venice Chua MD Primary Care Provider +1- [phone] Encounter Details Date Type Department Care Team (Latest Contact Info) Description 10/31/2022 Transcribe Orders Virtual Department [address] [place] [address] Leigh Ann Geronimo NP [address] [facility] [address] [place] [address] Dense breast tissue on mammogram (Primary Dx); [...] breast documented in this encounter Care Teams Centrex Radio Operator Relationship Specialty Start Date End Date Venice Chua MD [address] [facility] [address] [place] [address] [email or web address] PCP - General Internal Medicine 10/25/22 documented as of this encounter Additional Source Comments The information contained in this document represents components of the legal health record. It is not the complete legal health record.[facility]
[2025-06-30 10:40] LABS: Anion Gap 13 (12-20); Blood Urea Nitrogen 11 mg/dL (9-16); Calcium 9.2 mg/dL (8.4-10.2); Carbon Dioxide 25 mmol/L (22-29); Chloride 102 mmol/L (96-108); Estimated Glomerular Filt Rate > 60; Potassium 4.6 mmol/L (3.3-5.1); Sodium 135 mmol/L (135-145)
== END 2025-06-30 09:18 | disposition home or self-care (01) ==
LOC: HO.LAB 09:17
PROVIDERS: PCP Internal Medicine; Visit Provider Physician Assistant Medical
DX: Z00.00 Encounter for general adult medical examination without abnormal findings (principal)
CPT/HCPCS: 36415; 80048